=== PATIENT | male | born 1955 | race Caucasian/White ===

== ENCOUNTER 2016-11-16 07:49 | Emergency (ER) | payer MEDICARE, MEDICAID ==
[~2016-11-16] VITALS: Ht 167.6 cm; Wt 75.0 kg
[~2016-11-16 07:49] MED LIST: ACLI400A2 INH; ALBU8.5H3 INH; ALBUTEROL INHALER; ALPR1TAB2 PO; AMLO5TAB2 PO; AMOX1TAB61 PO; ASPI325T4 PO; AZIT500T77 PO; BENZ1TAB61 PO; BUDE10.2 INH; CEFD300C37 PO; CLON0.5T PO; CYCL5TAB PO; FLUT1DIS3 INH; HYDR50TA13 PO; IPRA12.9 INH; LEVO750T26 PO; LISI-170 PO; LISI1TAB7 PO; METR500T PO; MIRT15TA4 PO; NICO1PAT4 TD; NICO1PAT5 TD; PRED50TA PO; PRED5TAB PO; TRAM-28 PO; ZIPR40CA2 PO
[2016-11-16 12:25] VITALS: BP 117/70
== END 2016-11-16 12:27 | disposition home or self-care (01) ==
LOC: ED 12:21
DX: F41.1 Generalized anxiety disorder (principal); J44.1 Chronic obstructive pulmonary disease with (acute) exacerbation; Z59.0 Homelessness; E78.00 Pure hypercholesterolemia, unspecified
CPT/HCPCS: 99284

== ENCOUNTER 2016-11-16 16:46 | Emergency (ER) | payer MEDICARE, MEDICAID ==
[~2016-11-16] VITALS: Ht 167.6 cm; Wt 77.2 kg
[2016-11-16 18:14] LABS: BLOOD UREA NITROGEN 26 mg/dL (7-18)
[2016-11-16 18:20] LABS: IS PT STATUS REG ER OR PRE ER? YES
[2016-11-16 19:11] VITALS: BP 118/76
== END 2016-11-16 19:30 | disposition home or self-care (01) ==
LOC: ED 17:44
DX: F41.1 Generalized anxiety disorder (principal); I10 Essential (primary) hypertension; E78.00 Pure hypercholesterolemia, unspecified; F31.9 Bipolar disorder, unspecified
CPT/HCPCS: 36415; 71010; 80048; 84484; 85025; 93005; 99285; Q0177

== ENCOUNTER 2016-11-17 08:23 | Emergency (ER) | payer MEDICARE, MEDICAID ==
[~2016-11-17] VITALS: Ht 167.6 cm; Wt 76.0 kg
[2016-11-17 09:50] VITALS: BP 146/95
== END 2016-11-17 09:51 | disposition home or self-care (01) ==
LOC: ED 08:24
DX: S83.92XA Sprain of unspecified site of left knee, initial encounter (principal); S70.02XA Contusion of left hip, initial encounter; J44.9 Chronic obstructive pulmonary disease, unspecified; K21.9 Gastro-esophageal reflux disease without esophagitis; E78.00 Pure hypercholesterolemia, unspecified; Z86.718 Personal history of other venous thrombosis and embolism; Z88.1 Allergy status to other antibiotic agents; W18.30XA Fall on same level, unspecified, initial encounter; Y93.89 Activity, other specified; Y92.89 Other specified places as the place of occurrence of the external cause; Y99.9 Unspecified external cause status; F10.20 Alcohol dependence, uncomplicated
CPT/HCPCS: 99284

== ENCOUNTER 2017-01-05 00:38 | Emergency (ER) | payer MEDICARE, MEDICAID ==
[~2017-01-05] VITALS: Ht 167.6 cm; Wt 76.5 kg
[2017-01-05 00:51] VITALS: BP 149/90
== END 2017-01-05 02:07 | disposition home or self-care (01) ==
LOC: ED 01:50
DX: L03.317 Cellulitis of buttock (principal); L20.9 Atopic dermatitis, unspecified; L50.8 Other urticaria; I11.9 Hypertensive heart disease without heart failure; J44.9 Chronic obstructive pulmonary disease, unspecified; K21.9 Gastro-esophageal reflux disease without esophagitis; E78.00 Pure hypercholesterolemia, unspecified; F10.20 Alcohol dependence, uncomplicated; F17.200 Nicotine dependence, unspecified, uncomplicated
CPT/HCPCS: 99283

== ENCOUNTER 2017-01-13 22:47 | Emergency (ER) | payer MEDICARE, MEDICAID ==
[~2017-01-13] VITALS: Ht 172.7 cm; Wt 69.0 kg
[2017-01-13 22:50] VITALS: BP 160/90
== END 2017-01-13 23:27 | disposition left against medical advice (07) ==
LOC: ED 23:15
DX: L20.84 Intrinsic (allergic) eczema (principal); I25.2 Old myocardial infarction; J44.9 Chronic obstructive pulmonary disease, unspecified; I10 Essential (primary) hypertension; F31.9 Bipolar disorder, unspecified; Z86.718 Personal history of other venous thrombosis and embolism; Z88.1 Allergy status to other antibiotic agents
CPT/HCPCS: 99283

== ENCOUNTER 2017-03-01 03:02 | Emergency (ER) | payer MEDICARE, MEDICAID ==
[~2017-03-01] VITALS: Ht 167.6 cm; Wt 70.0 kg
[~2017-03-01 03:02] MED LIST changes: -ALBU8.5H3 INH; +ALBU8.5H8 INH; +ASPI325T17 PO; -ASPI325T4 PO; +AZIT500T5 PO; -AZIT500T77 PO; +NICO1PAT13 TD; +NICO1PAT16 TD; -NICO1PAT4 TD; -NICO1PAT5 TD; -TRAM-28 PO; +TRAM-47 PO
[2017-03-01 03:10] VITALS: BP 148/78
[2017-03-01] MEDS ORDERED: hydrOXYzine 50 MG/ML IM ONE (03:30)
== END 2017-03-01 03:29 | disposition home or self-care (01) ==
LOC: ED 03:26
DX: L20.84 Intrinsic (allergic) eczema (principal); J44.9 Chronic obstructive pulmonary disease, unspecified; E78.00 Pure hypercholesterolemia, unspecified; Z86.718 Personal history of other venous thrombosis and embolism; Z88.1 Allergy status to other antibiotic agents
CPT/HCPCS: 96372; 99283; J3410

== ENCOUNTER 2017-05-11 05:50 | Emergency (ER) | payer MEDICARE, MEDICAID ==
[~2017-05-11] VITALS: Ht 167.6 cm; Wt 80.0 kg
[~2017-05-11 05:50] MED LIST changes: +NICO-486 TD; +NICO-487 TD; -NICO1PAT13 TD; -NICO1PAT16 TD
[2017-05-11 05:57] VITALS: BP 151/61
== END 2017-05-11 06:42 | disposition home or self-care (01) ==
LOC: ED 06:06
DX: J44.1 Chronic obstructive pulmonary disease with (acute) exacerbation (principal); Z72.89 Other problems related to lifestyle; F10.20 Alcohol dependence, uncomplicated; K21.9 Gastro-esophageal reflux disease without esophagitis; E78.00 Pure hypercholesterolemia, unspecified; I11.9 Hypertensive heart disease without heart failure; Z87.891 Personal history of nicotine dependence
CPT/HCPCS: 93005; 99283

== ENCOUNTER 2017-07-19 02:21 | Emergency (ER) | payer MEDICARE, MEDICAID ==
[~2017-07-19] VITALS: Ht 167.6 cm; Wt 70.5 kg
[2017-07-19] MEDS ORDERED: BENZ2TAB6 PO (02:38)
[2017-07-19] MEDS ORDERED: ALBUTEROL/IPRATROPIUM 2.5MG/0.5MG, 3 ML NPPB ONE (03:00)
[2017-07-19] MEDS ORDERED: ALBUTEROL/IPRATROPIUM 2.5MG/0.5MG, 3 ML ONE (03:04)
[2017-07-19 03:17] LABS: BASOPHILS # (AUTO) 0.02 x10^3/uL (0-0.1); BASOPHILS % (AUTO) 0 % (0-1); EOSINOPHILS # (AUTO) 0.25 x10^3/uL (0-0.4); EOSINOPHILS % (AUTO) 4 % (1-7); LYMPHOCYTES # (AUTO) 1.17 x10^3/uL (1-3.4); LYMPHOCYTES % (AUTO) 19 % (22-44); MD NO; MEAN CORPUSCULAR HEMOGLOBIN 28.6 pg (27.5-34.5); MEAN CORPUSCULAR HGB CONC 33.5 g/dL (33.2-36.2); MEAN CORPUSCULAR VOLUME 85.4 fL (81-97); MONOCYTES % (AUTO) 10 % (2-9); NEUTROPHILS # (AUTO) 4.09 x10^3/uL (1.8-6.8); NEUTROPHILS % (AUTO) 67 % (42-75); PLATELET COUNT 244 x10^3/uL (130-400); RED BLOOD COUNT 4.35 x10^6/uL (4.38-5.82)
[2017-07-19 03:30] LABS: ALANINE AMINOTRANSFERASE 33 U/L (12-78); ALBUMIN 3.2 g/dL (3.4-5.0); ANION GAP 6 mmol/L (5-15); CALCIUM 7.8 mg/dL (8.5-10.1); CHLORIDE 111 mmol/L (98-107); CREATININE 1.04 mg/dL (0.7-1.3)
[2017-07-19 03:32] LABS: ALKALINE PHOSPHATASE 48 U/L (45-117); BILIRUBIN,TOTAL 0.3 mg/dL (0.2-1.0)
[2017-07-19 04:21] VITALS: BP 149/88
== END 2017-07-19 04:23 | disposition home or self-care (01) ==
LOC: ED 02:33
DX: J44.1 Chronic obstructive pulmonary disease with (acute) exacerbation (principal); I21.9 Acute myocardial infarction, unspecified; E78.00 Pure hypercholesterolemia, unspecified; I10 Essential (primary) hypertension; K21.9 Gastro-esophageal reflux disease without esophagitis
CPT/HCPCS: 36415; 71045; 80053; 85025; 94640; 99285; J7512; J7620

== ENCOUNTER 2017-09-08 06:19 | Emergency (ER) | payer MEDICARE, MEDICAID ==
[~2017-09-08] VITALS: Ht 172.7 cm; Wt 65.0 kg
[~2017-09-08 06:19] MED LIST changes: +BENZ2TAB6 PO
[2017-09-08] MEDS ORDERED: FAMOTIDINE 20 MG/2 ML IVP ONE (07:00)
[2017-09-08] MEDS ORDERED: SODIUM CHLORIDE FLUSH 10ML SYR IVF ONE (07:00)
[2017-09-08] MEDS ORDERED: MORPHINE SULFATE 4 MG/ML, 1ML IVPush PRN (07:00)
[2017-09-08] MEDS ORDERED: ONDANSETRON ODT 4 MG PO ONE (07:00)
[2017-09-08] MEDS ORDERED: ALBUTEROL/IPRATROPIUM 2.5MG/0.5MG, 3 ML ONE (07:25)
[2017-09-08] MEDS ORDERED: ONDANSETRON ODT 4 MG ONE (07:26)
[2017-09-08] MEDS ORDERED: FAMOTIDINE 20 MG/2 ML ONE (07:26)
[2017-09-08] MEDS ORDERED: ALBUTEROL/IPRATROPIUM 2.5MG/0.5MG, 3 ML NPPB ONE (07:30)
[2017-09-08] MEDS ORDERED: ALBU8.5H8 IH (07:33)
[2017-09-08] MEDS ORDERED: ALPR1TAB2 PO (07:33)
[2017-09-08] MEDS ORDERED: GABA300C10 PO (07:33)
[2017-09-08 07:39] LABS: BASOPHILS # (AUTO) 0.05 x10^3/uL (0-0.1); BASOPHILS % (AUTO) 1 % (0-1); EOSINOPHILS % (AUTO) 5 % (1-7); LYMPHOCYTES # (AUTO) 1.41 x10^3/uL (1-3.4); LYMPHOCYTES % (AUTO) 17 % (22-44); MD NO; MEAN CORPUSCULAR HEMOGLOBIN 27.2 pg (27.5-34.5); MEAN CORPUSCULAR HGB CONC 32.8 g/dL (33.2-36.2); MEAN CORPUSCULAR VOLUME 82.8 fL (81-97); MEAN PLATELET VOLUME 6.9 fL (7.4-10.4); MONOCYTES # (AUTO) 0.63 x10^3/uL (0.2-0.8); MONOCYTES % (AUTO) 8 % (2-9); NEUTROPHILS # (AUTO) 5.62 x10^3/uL (1.8-6.8); NEUTROPHILS % (AUTO) 69 % (42-75); PLATELET COUNT 435 x10^3/uL (130-400); RED BLOOD COUNT 4.75 x10^6/uL (4.38-5.82); RED CELL DISTRIBUTION WIDTH 15.6 % (9.4-14.8)
[2017-09-08 07:48] LABS: ALANINE AMINOTRANSFERASE 23 U/L (12-78); ALBUMIN 2.8 g/dL (3.4-5.0); ANION GAP 7 mmol/L (5-15); CALCIUM 8.2 mg/dL (8.5-10.1); CHLORIDE 111 mmol/L (98-107); CREATININE 1.01 mg/dL (0.7-1.3)
[2017-09-08 07:51] LABS: ALKALINE PHOSPHATASE 59 U/L (45-117); BILIRUBIN,TOTAL 0.4 mg/dL (0.2-1.0); TOTAL PROTEIN 6.5 g/dL (6.4-8.2)
[2017-09-08 08:08] LABS: MICROSCOPIC NOT IND
[2017-09-08 08:12] LABS: CULTURE INDICATED? NO
[2017-09-08] MEDS ORDERED: CEFTRIAXONE 1,000 MG in SODIUM CHLORIDE 0.9% 50 ML IV ONE (09:30)
[2017-09-08] MEDS ORDERED: CEFTRIAXONE PMX 1GM/50ML 50 ML IV ONE (09:39)
[2017-09-08] MEDS ORDERED: CEFTRIAXONE PMX 1GM/50ML 50 ML ONE (09:41)
[2017-09-08] MEDS ORDERED: MORPHINE SULFATE 4 MG/ML, 1ML ONE (09:59)
[2017-09-08 10:19] VITALS: BP 135/74
== END 2017-09-08 10:22 | disposition home or self-care (01) ==
LOC: ED 08:53
DX: R10.30 Lower abdominal pain, unspecified (principal); J15.8 Pneumonia due to other specified bacteria; J45.901 Unspecified asthma with (acute) exacerbation; L24.9 Irritant contact dermatitis, unspecified cause; Z87.01 Personal history of pneumonia (recurrent); Z79.899 Other long term (current) drug therapy
CPT/HCPCS: 36415; 71046; 76700; 80053; 80307; 81003; 83690; 85025; 96365; 96375; 99285; J0696; Q0162; J7620; S0028

== ENCOUNTER 2017-09-25 18:57 | Emergency (ER) | payer MEDICARE, MEDICAID ==
[~2017-09-25] VITALS: Ht 167.6 cm; Wt 73.5 kg
[~2017-09-25 18:57] MED LIST changes: +ALBU8.5H8 IH; +GABA300C10 PO
[2017-09-25 19:06] VITALS: BP 177/97
[2017-09-25 19:36] LABS: BASOPHILS # (AUTO) 0.03 x10^3/uL (0-0.1); BASOPHILS % (AUTO) 0 % (0-1); EOSINOPHILS % (AUTO) 7 % (1-7); LYMPHOCYTES # (AUTO) 1.15 x10^3/uL (1-3.4); LYMPHOCYTES % (AUTO) 15 % (22-44); MD NO; MEAN CORPUSCULAR HEMOGLOBIN 27.4 pg (27.5-34.5); MEAN CORPUSCULAR HGB CONC 32.8 g/dL (33.2-36.2); MEAN CORPUSCULAR VOLUME 83.4 fL (81-97); MEAN PLATELET VOLUME 7.3 fL (7.4-10.4); MONOCYTES # (AUTO) 0.64 x10^3/uL (0.2-0.8); MONOCYTES % (AUTO) 8 % (2-9); NEUTROPHILS # (AUTO) 5.24 x10^3/uL (1.8-6.8); NEUTROPHILS % (AUTO) 69 % (42-75); PLATELET COUNT 284 x10^3/uL (130-400); RED BLOOD COUNT 4.72 x10^6/uL (4.38-5.82); RED CELL DISTRIBUTION WIDTH 15.5 % (9.4-14.8)
[2017-09-25 19:44] LABS: ALBUMIN 3.6 g/dL (3.4-5.0); ANION GAP 8 mmol/L (5-15); CALCIUM 8.4 mg/dL (8.5-10.1); CHLORIDE 116 mmol/L (98-107); CREATININE 0.96 mg/dL (0.7-1.3)
[2017-09-25] MEDS ORDERED: hydrOXyzine 50MG TABLET ONE (19:57)
== END 2017-09-25 20:27 | disposition home or self-care (01) ==
LOC: ED 20:15
DX: L23.89 Allergic contact dermatitis due to other agents (principal); T36.8X5A Adverse effect of other systemic antibiotics, initial encounter; Y92.89 Other specified places as the place of occurrence of the external cause; I10 Essential (primary) hypertension; J44.9 Chronic obstructive pulmonary disease, unspecified; E78.00 Pure hypercholesterolemia, unspecified; F31.9 Bipolar disorder, unspecified; K21.9 Gastro-esophageal reflux disease without esophagitis
CPT/HCPCS: 36415; 80048; 82040; 85025; 99284; Q0177

== ENCOUNTER 2017-10-03 05:41 | Emergency (ER) | payer MEDICARE, MEDICAID ==
[~2017-10-03] VITALS: Ht 167.6 cm; Wt 74.1 kg
[2017-10-03] MEDS ORDERED: MORPHINE SULFATE 4 MG/ML, 1ML ONE (05:59)
[2017-10-03] MEDS ORDERED: ONDANSETRON ODT 4 MG ONE (05:59)
[2017-10-03] MEDS ORDERED: ONDANSETRON ODT 4 MG PO ONE (06:00)
[2017-10-03] MEDS ORDERED: MORPHINE SULFATE 4 MG/ML, 1ML IVPush PRN (06:00)
[2017-10-03] MEDS ORDERED: SODIUM CHLORIDE FLUSH 10ML SYR IVF ONE (06:00)
[2017-10-03 06:11] LABS: BASOPHILS # (AUTO) 0.07 x10^3/uL (0-0.1); BASOPHILS % (AUTO) 1 % (0-1); EOSINOPHILS # (AUTO) 0.33 x10^3/uL (0-0.4); EOSINOPHILS % (AUTO) 5 % (1-7); LYMPHOCYTES # (AUTO) 1.64 x10^3/uL (1-3.4); LYMPHOCYTES % (AUTO) 26 % (22-44); MD NO; MEAN CORPUSCULAR HEMOGLOBIN 26.9 pg (27.5-34.5); MEAN CORPUSCULAR HGB CONC 32.9 g/dL (33.2-36.2); MEAN CORPUSCULAR VOLUME 81.9 fL (81-97); MEAN PLATELET VOLUME 7.3 fL (7.4-10.4); MONOCYTES # (AUTO) 0.55 x10^3/uL (0.2-0.8); MONOCYTES % (AUTO) 9 % (2-9); NEUTROPHILS # (AUTO) 3.65 x10^3/uL (1.8-6.8); NEUTROPHILS % (AUTO) 58 % (42-75); PLATELET COUNT 298 x10^3/uL (130-400); RED BLOOD COUNT 5.48 x10^6/uL (4.38-5.82); RED CELL DISTRIBUTION WIDTH 15.5 % (9.4-14.8)
[2017-10-03 06:23] LABS: ALANINE AMINOTRANSFERASE 26 U/L (12-78); ALBUMIN 3.7 g/dL (3.4-5.0); ANION GAP 9 mmol/L (5-15); CALCIUM 8.4 mg/dL (8.5-10.1); CHLORIDE 112 mmol/L (98-107); CREATININE 1.01 mg/dL (0.7-1.3)
[2017-10-03 06:25] LABS: ALKALINE PHOSPHATASE 70 U/L (45-117); BILIRUBIN,TOTAL 0.7 mg/dL (0.2-1.0); TOTAL PROTEIN 6.9 g/dL (6.4-8.2)
[2017-10-03] MEDS ORDERED: DIPHENHYDRAMINE 50 MG/ML, 1ML ONE (07:24)
[2017-10-03] MEDS ORDERED: DIPHENHYDRAMINE 50 MG/ML, 1ML IVPush ONE (07:30)
[2017-10-03 07:31] VITALS: BP 166/85
== END 2017-10-03 07:55 | disposition home or self-care (01) ==
LOC: ED 07:35
DX: K40.90 Unilateral inguinal hernia, without obstruction or gangrene, not specified as recurrent (principal); K21.9 Gastro-esophageal reflux disease without esophagitis; J44.9 Chronic obstructive pulmonary disease, unspecified; G89.29 Other chronic pain; R10.32 Left lower quadrant pain; Z86.718 Personal history of other venous thrombosis and embolism
CPT/HCPCS: 36415; 80053; 83605; 83690; 85025; 87040; 96374; 96375; 99284; J1200; Q0162; 96372

== ENCOUNTER 2017-10-05 07:05 | Emergency (ER) | payer MEDICARE, MEDICAID ==
[~2017-10-05] VITALS: Ht 167.6 cm; Wt 74.0 kg
[2017-10-05 07:15] VITALS: BP 159/84
[2017-10-05] MEDS ORDERED: HYDROcodone/APAP 5/325 TABLET ONE (07:29)
[2017-10-05] MEDS ORDERED: HYDROcodone/APAP 5/325 TABLET PO ONE (07:30)
[2017-10-05 07:55] LABS: BASOPHILS # (AUTO) 0.05 x10^3/uL (0-0.1); BASOPHILS % (AUTO) 1 % (0-1); EOSINOPHILS # (AUTO) 0.39 x10^3/uL (0-0.4); EOSINOPHILS % (AUTO) 9 % (1-7); LYMPHOCYTES # (AUTO) 0.69 x10^3/uL (1-3.4); LYMPHOCYTES % (AUTO) 16 % (22-44); MD NO; MEAN CORPUSCULAR HEMOGLOBIN 26.8 pg (27.5-34.5); MEAN CORPUSCULAR HGB CONC 32.9 g/dL (33.2-36.2); MEAN CORPUSCULAR VOLUME 81.6 fL (81-97); MEAN PLATELET VOLUME 7.2 fL (7.4-10.4); MONOCYTES # (AUTO) 0.49 x10^3/uL (0.2-0.8); MONOCYTES % (AUTO) 11 % (2-9); NEUTROPHILS # (AUTO) 2.76 x10^3/uL (1.8-6.8); NEUTROPHILS % (AUTO) 63 % (42-75); PLATELET COUNT 250 x10^3/uL (130-400); RED BLOOD COUNT 4.95 x10^6/uL (4.38-5.82); RED CELL DISTRIBUTION WIDTH 15.8 % (9.4-14.8)
[2017-10-05 08:00] LABS: ALBUMIN 3.3 g/dL (3.4-5.0); ANION GAP 8 mmol/L (5-15); CALCIUM 7.8 mg/dL (8.5-10.1); CHLORIDE 116 mmol/L (98-107); CREATININE 1.01 mg/dL (0.7-1.3)
== END 2017-10-05 09:17 | disposition home or self-care (01) ==
LOC: ED 07:07
DX: K40.90 Unilateral inguinal hernia, without obstruction or gangrene, not specified as recurrent (principal); L30.9 Dermatitis, unspecified; Z59.0 Homelessness; J44.9 Chronic obstructive pulmonary disease, unspecified; E78.00 Pure hypercholesterolemia, unspecified; K21.9 Gastro-esophageal reflux disease without esophagitis; I10 Essential (primary) hypertension; F10.20 Alcohol dependence, uncomplicated; F17.210 Nicotine dependence, cigarettes, uncomplicated
CPT/HCPCS: 36415; 80048; 82040; 83605; 85025; 99284

== ENCOUNTER 2017-10-05 09:39 | Emergency (ER) | payer MEDICARE, MEDICAID ==
[~2017-10-05] VITALS: Ht 167.6 cm; Wt 78.0 kg
[2017-10-05 09:42] VITALS: BP 167/91
== END 2017-10-05 12:00 | disposition left against medical advice (07) ==
LOC: ED 11:24
DX: K40.90 Unilateral inguinal hernia, without obstruction or gangrene, not specified as recurrent (principal); J44.9 Chronic obstructive pulmonary disease, unspecified; E78.00 Pure hypercholesterolemia, unspecified; I11.9 Hypertensive heart disease without heart failure; K21.9 Gastro-esophageal reflux disease without esophagitis; Z86.718 Personal history of other venous thrombosis and embolism; F10.20 Alcohol dependence, uncomplicated
CPT/HCPCS: 99281

== ENCOUNTER 2017-10-13 14:50 | Emergency (ER) | payer MEDICARE, MEDICAID ==
[~2017-10-13] VITALS: Ht 167.6 cm; Wt 71.4 kg
[2017-10-13 14:57] VITALS: BP 170/88
== END 2017-10-13 16:03 | disposition home or self-care (01) ==
LOC: ED 15:44
DX: K40.91 Unilateral inguinal hernia, without obstruction or gangrene, recurrent (principal); I10 Essential (primary) hypertension; E78.00 Pure hypercholesterolemia, unspecified; I25.2 Old myocardial infarction; K21.9 Gastro-esophageal reflux disease without esophagitis; J44.9 Chronic obstructive pulmonary disease, unspecified; F17.200 Nicotine dependence, unspecified, uncomplicated
CPT/HCPCS: 99283

== ENCOUNTER 2017-12-10 11:07 | Emergency (ER) | payer MEDICARE, MEDICAID ==
[~2017-12-10] VITALS: Ht 167.6 cm; Wt 69.5 kg
[2017-12-10 11:42] LABS: BASOPHILS # (AUTO) 0.11 x10^3/uL (0-0.1); BASOPHILS % (AUTO) 2 % (0-1); EOSINOPHILS # (AUTO) 0.38 x10^3/uL (0-0.4); EOSINOPHILS % (AUTO) 7 % (1-7); LYMPHOCYTES # (AUTO) 0.99 x10^3/uL (1-3.4); LYMPHOCYTES % (AUTO) 18 % (22-44); MD NO; MEAN CORPUSCULAR HEMOGLOBIN 26.2 pg (27.5-34.5); MEAN CORPUSCULAR HGB CONC 32.9 g/dL (33.2-36.2); MEAN CORPUSCULAR VOLUME 79.6 fL (81-97); MEAN PLATELET VOLUME 7.7 fL (7.4-10.4); MONOCYTES # (AUTO) 0.44 x10^3/uL (0.2-0.8); MONOCYTES % (AUTO) 8 % (2-9); NEUTROPHILS # (AUTO) 3.63 x10^3/uL (1.8-6.8); NEUTROPHILS % (AUTO) 66 % (42-75); PLATELET COUNT 273 x10^3/uL (130-400); RED BLOOD COUNT 5.27 x10^6/uL (4.38-5.82); RED CELL DISTRIBUTION WIDTH 14.4 % (9.4-14.8)
[2017-12-10 11:51] LABS: ALANINE AMINOTRANSFERASE 21 U/L (12-78); ALBUMIN 3.4 g/dL (3.4-5.0); ANION GAP 7 mmol/L (5-15); CALCIUM 8.2 mg/dL (8.5-10.1); CHLORIDE 113 mmol/L (98-107)
[2017-12-10 11:55] LABS: ALKALINE PHOSPHATASE 68 U/L (45-117); BILIRUBIN,TOTAL 0.2 mg/dL (0.2-1.0); CREATININE 1.11 mg/dL (0.7-1.3); TOTAL PROTEIN 6.5 g/dL (6.4-8.2); TROPONIN I < 0.015 ng/mL (0.000-0.045)
[2017-12-10 13:02] VITALS: BP 185/96
== END 2017-12-10 15:15 | disposition home or self-care (01) ==
LOC: ED 14:44
DX: R55 Syncope and collapse (principal); R42 Dizziness and giddiness; R40.4 Transient alteration of awareness; I10 Essential (primary) hypertension; J44.9 Chronic obstructive pulmonary disease, unspecified; I25.2 Old myocardial infarction; E78.00 Pure hypercholesterolemia, unspecified; F17.200 Nicotine dependence, unspecified, uncomplicated; Z86.718 Personal history of other venous thrombosis and embolism
CPT/HCPCS: 36415; 70450; 71045; 72125; 72190; 80053; 80307; 84484; 85025; 93005; 99285

== ENCOUNTER 2018-01-23 22:51 | Emergency (ER) | payer MEDICARE, MEDICAID ==
[~2018-01-23] VITALS: Ht 167.6 cm; Wt 70.0 kg
[2018-01-23] MEDS ORDERED: LISI2.5T PO (23:13)
[2018-01-23 23:18] LABS: BASOPHILS # (AUTO) 0.04 x10^3/uL (0-0.1); BASOPHILS % (AUTO) 0 % (0-1); EOSINOPHILS # (AUTO) 0.22 x10^3/uL (0-0.4); EOSINOPHILS % (AUTO) 3 % (1-7); LYMPHOCYTES # (AUTO) 1.76 x10^3/uL (1-3.4); LYMPHOCYTES % (AUTO) 21 % (22-44); MD NO; MEAN CORPUSCULAR HEMOGLOBIN 26.7 pg (27.5-34.5); MEAN CORPUSCULAR HGB CONC 33.3 g/dL (33.2-36.2); MEAN CORPUSCULAR VOLUME 80.2 fL (81-97); MEAN PLATELET VOLUME 7.6 fL (7.4-10.4); MONOCYTES # (AUTO) 0.56 x10^3/uL (0.2-0.8); MONOCYTES % (AUTO) 7 % (2-9); NEUTROPHILS # (AUTO) 5.76 x10^3/uL (1.8-6.8); NEUTROPHILS % (AUTO) 69 % (42-75); PLATELET COUNT 256 x10^3/uL (130-400); RED BLOOD COUNT 5.31 x10^6/uL (4.38-5.82); RED CELL DISTRIBUTION WIDTH 16.7 % (9.4-14.8)
[2018-01-23] MEDS: LABETALOL 5MG/ML, 20ML IVPush ONE (23:25)
[2018-01-23 23:29] LABS: ALANINE AMINOTRANSFERASE 23 U/L (12-78); ALBUMIN 3.4 g/dL (3.4-5.0); ANION GAP 4 mmol/L (5-15); CALCIUM 8.6 mg/dL (8.5-10.1); CHLORIDE 110 mmol/L (98-107)
[2018-01-23] MEDS ORDERED: SODIUM CHLORIDE 0.9% 1,000ML IVBOLUS ONE (23:30)
[2018-01-23 23:32] LABS: ALKALINE PHOSPHATASE 75 U/L (45-117); BILIRUBIN,TOTAL 0.2 mg/dL (0.2-1.0); CREATININE 1.05 mg/dL (0.7-1.3); TOTAL PROTEIN 6.4 g/dL (6.4-8.2)
[2018-01-23] MEDS ORDERED: LABETALOL 5MG/ML, 20ML ONE (23:39)
[2018-01-24] MEDS ORDERED: LABETALOL 5MG/ML, 20ML ONE (00:12)
[2018-01-24] MEDS: LABETALOL 5MG/ML, 20ML IVPush ONE (00:13)
[2018-01-24 00:31] LABS: AMPHETAMINE SCREEN, URINE Negative (Negative); BARBITURATE SCREEN, URINE Negative (Negative); BENZODIAZEPINE SCREEN, URINE Negative (Negative); CANNABINOID SCREEN, URINE Negative (Negative); COCAINE SCREEN, URINE Negative (Negative); METHADONE SCREEN, URINE Negative (Negative); OPIATE SCREEN, URINE Negative (Negative)
[2018-01-24 01:30] VITALS: BP 186/92
[2018-01-24] MEDS ORDERED: LISINOPRIL 5 MG TABLET PO ONE (01:30)
== END 2018-01-24 01:40 | disposition home or self-care (01) ==
LOC: ED 01-24 00:13
DX: I10 Essential (primary) hypertension (principal); Z72.9 Problem related to lifestyle, unspecified; F17.200 Nicotine dependence, unspecified, uncomplicated; F41.1 Generalized anxiety disorder; Z86.73 Personal history of transient ischemic attack (TIA), and cerebral infarction without residual deficits; J44.9 Chronic obstructive pulmonary disease, unspecified; K21.9 Gastro-esophageal reflux disease without esophagitis; I25.2 Old myocardial infarction; F31.9 Bipolar disorder, unspecified
CPT/HCPCS: 36415; 70450; 80053; 80307; 85025; 96374; 99285; J7030

== ENCOUNTER 2018-02-07 00:31 | Emergency (ER) | payer MEDICARE, MEDICAID ==
[~2018-02-07] VITALS: Ht 167.6 cm; Wt 71.2 kg
[~2018-02-07 00:31] MED LIST changes: +LISI2.5T PO
[2018-02-07 02:02] LABS: BASOPHILS # (AUTO) 0.03 x10^3/uL (0-0.1); BASOPHILS % (AUTO) 1 % (0-1); EOSINOPHILS # (AUTO) 0.44 x10^3/uL (0-0.4); EOSINOPHILS % (AUTO) 8 % (1-7); LYMPHOCYTES # (AUTO) 0.96 x10^3/uL (1-3.4); LYMPHOCYTES % (AUTO) 17 % (22-44); MD NO; MEAN CORPUSCULAR HEMOGLOBIN 27.2 pg (27.5-34.5); MEAN CORPUSCULAR HGB CONC 33.5 g/dL (33.2-36.2); MEAN CORPUSCULAR VOLUME 81.1 fL (81-97); MEAN PLATELET VOLUME 7.4 fL (7.4-10.4); MONOCYTES # (AUTO) 0.34 x10^3/uL (0.2-0.8); MONOCYTES % (AUTO) 6 % (2-9); NEUTROPHILS # (AUTO) 3.77 x10^3/uL (1.8-6.8); NEUTROPHILS % (AUTO) 68 % (42-75); PLATELET COUNT 257 x10^3/uL (130-400); RED BLOOD COUNT 5.42 x10^6/uL (4.38-5.82); RED CELL DISTRIBUTION WIDTH 16.9 % (9.4-14.8)
[2018-02-07 02:11] LABS: ALANINE AMINOTRANSFERASE 28 U/L (12-78); ALBUMIN 3.6 g/dL (3.4-5.0); ANION GAP 5 mmol/L (5-15); CALCIUM 8.3 mg/dL (8.5-10.1); CHLORIDE 111 mmol/L (98-107); CREATININE 1.21 mg/dL (0.7-1.3)
[2018-02-07 02:13] LABS: ALKALINE PHOSPHATASE 88 U/L (45-117); BILIRUBIN,TOTAL 0.3 mg/dL (0.2-1.0); TOTAL PROTEIN 6.9 g/dL (6.4-8.2)
[2018-02-07 03:30] LABS: MICROSCOPIC AUTO
[2018-02-07 03:32] LABS: CULTURE INDICATED? NO
[2018-02-07 03:33] VITALS: BP 162/66
== END 2018-02-07 03:35 | disposition home or self-care (01) ==
LOC: ED 01:17
DX: G89.29 Other chronic pain (principal); R10.84 Generalized abdominal pain; I10 Essential (primary) hypertension; J44.9 Chronic obstructive pulmonary disease, unspecified; K21.9 Gastro-esophageal reflux disease without esophagitis; I25.2 Old myocardial infarction; E78.00 Pure hypercholesterolemia, unspecified; F31.9 Bipolar disorder, unspecified; F41.1 Generalized anxiety disorder; M10.9 Gout, unspecified; F17.210 Nicotine dependence, cigarettes, uncomplicated; Z86.718 Personal history of other venous thrombosis and embolism
CPT/HCPCS: 36415; 74022; 80053; 81001; 83690; 85025; 99285

== ENCOUNTER 2018-04-13 02:33 | Emergency (ER) | payer MEDICARE, MEDICAID ==
[~2018-04-13] VITALS: Ht 167.6 cm; Wt 71.7 kg
[~2018-04-13 02:33] MED LIST changes: -AMLO5TAB2 PO; +AMLO5TAB7 PO
[2018-04-13 02:35] VITALS: BP 183/73
[2018-04-13] MEDS ORDERED: IBUPROFEN 200 MG TABLET ONE (03:25)
[2018-04-13] MEDS ORDERED: IBUPROFEN 200 MG TABLET PO ONE (03:30)
== END 2018-04-13 03:32 | disposition home or self-care (01) ==
LOC: ED 03:07
DX: R21 Rash and other nonspecific skin eruption (principal); F17.210 Nicotine dependence, cigarettes, uncomplicated; I10 Essential (primary) hypertension; J44.9 Chronic obstructive pulmonary disease, unspecified; K21.9 Gastro-esophageal reflux disease without esophagitis; I25.2 Old myocardial infarction; E78.00 Pure hypercholesterolemia, unspecified
CPT/HCPCS: 99283

== ENCOUNTER 2018-07-20 18:56 | Emergency (ER) | payer MEDICARE, MEDICAID ==
[~2018-07-20] VITALS: Ht 167.6 cm; Wt 72.7 kg
[~2018-07-20 18:56] MED LIST changes: +AMLO-150 PO; -AMLO5TAB7 PO
[2018-07-20 19:02] VITALS: BP 119/85
[2018-07-20] MEDS ORDERED: ACETAMINOPHEN 500 MG TABLET ONE (19:53)
[2018-07-20] MEDS ORDERED: IBUPROFEN 600 MG TABLET ONE (19:53)
[2018-07-20] MEDS ORDERED: IBUPROFEN 600 MG TABLET PO ONE (20:00)
[2018-07-20] MEDS ORDERED: ACETAMINOPHEN 500 MG TABLET PO ONE (20:00)
--- NOTE | 2018-07-20 20:13 | NUR ---
PT MEDICATED PER ERP ORDER FOR CHRONIC PAIN. CXR RESULTS BACK, PT FOR RECHECK.
== END 2018-07-20 20:51 | disposition home or self-care (01) ==
LOC: ED 19:23
DX: L03.115 Cellulitis of right lower limb (principal); R05 Cough; E78.00 Pure hypercholesterolemia, unspecified; I25.2 Old myocardial infarction; J44.9 Chronic obstructive pulmonary disease, unspecified; I10 Essential (primary) hypertension; F31.9 Bipolar disorder, unspecified; Z72.9 Problem related to lifestyle, unspecified; Z86.718 Personal history of other venous thrombosis and embolism
CPT/HCPCS: 71045; 93005; 99283

== ENCOUNTER 2019-05-20 21:19 | Emergency (ER) | payer MEDICARE, MEDICAID ==
[~2019-05-20] VITALS: Ht 167.6 cm; Wt 67.0 kg
[~2019-05-20 21:19] MED LIST changes: -ACLI400A2 INH; +ACLI400A3 INH; +AZIT500T10 PO; -AZIT500T5 PO; +LISI1TAB20 PO; -LISI1TAB7 PO; +MIRT-34 PO; -MIRT15TA4 PO
--- NOTE | 2019-05-20 21:33 | NUR ---
PT [facility]YNA FROM [facility] FOR SOB WITH OBVIOUS INSPIRATORY AND EXPIRATORY WHEEZES X "A WHILE, SINCE THE WEATHER CHANGED." PT CONNECTED TO MONITORS. VSS ON RA. NEBULIZER TREATMENT IN PROGRESS UPON ARRIVAL. RA O2 SAT >94% AFTER NEB TX. NO NEEDS EXPRESSED. CALL LIGHT WITHIN REACH. AWAITING EDMD ASSESSMENT.
[2019-05-20] MEDS ORDERED: ALBUTEROL/IPRATROPIUM 2.5MG/0.5MG, 3 ML ONE (21:56)
[2019-05-20] MEDS ORDERED: ALBUTEROL/IPRATROPIUM 2.5MG/0.5MG, 3 ML NPPB ONE (22:00)
--- NOTE | 2019-05-20 22:02 | NUR ---
pt resting in room. vss. ekg and xr complete. rt at bs now. pt medicated per mar. no needs expressed. call light within reach. awaiting results.
[2019-05-20 23:30] VITALS: BP 118/54
== END 2019-05-20 23:34 | disposition home or self-care (01) ==
LOC: ED 23:28
DX: J98.01 Acute bronchospasm (principal); J06.9 Acute upper respiratory infection, unspecified; J44.9 Chronic obstructive pulmonary disease, unspecified; I10 Essential (primary) hypertension; K21.9 Gastro-esophageal reflux disease without esophagitis; E78.00 Pure hypercholesterolemia, unspecified; F17.200 Nicotine dependence, unspecified, uncomplicated
CPT/HCPCS: 71045; 93005; 94640; 99283; J7512; J7620

== ENCOUNTER 2019-06-15 01:12 | Emergency (ER) | payer MEDICAID, MEDICARE ==
[~2019-06-15] VITALS: Ht 167.6 cm; Wt 69.0 kg
[2019-06-15 01:24] VITALS: BP 190/93
[2019-06-15] MEDS ORDERED: ALBUTEROL/IPRATROPIUM 2.5MG/0.5MG, 3 ML NPPB ONE (01:30)
[2019-06-15] MEDS ORDERED: ALBUTEROL/IPRATROPIUM 2.5MG/0.5MG, 3 ML ONE (01:44)
[2019-06-15 01:47] LABS: BASOPHILS # (AUTO) 0.03 x10^3/uL (0-0.1); BASOPHILS % (AUTO) 0 % (0-1); EOSINOPHILS % (AUTO) 3 % (1-7); LYMPHOCYTES # (AUTO) 1.79 x10^3/uL (1-3.4); LYMPHOCYTES % (AUTO) 20 % (22-44); MD NO; MEAN CORPUSCULAR HEMOGLOBIN 29.5 pg (27.5-34.5); MEAN CORPUSCULAR HGB CONC 33.4 g/dL (33.2-36.2); MEAN CORPUSCULAR VOLUME 88.4 fL (81-97); MEAN PLATELET VOLUME 7.7 fL (7.4-10.4); MONOCYTES # (AUTO) 0.62 x10^3/uL (0.2-0.8); MONOCYTES % (AUTO) 7 % (2-9); NEUTROPHILS # (AUTO) 6.17 x10^3/uL (1.8-6.8); NEUTROPHILS % (AUTO) 69 % (42-75); PLATELET COUNT 211 x10^3/uL (130-400); RED BLOOD COUNT 4.81 x10^6/uL (4.38-5.82); RED CELL DISTRIBUTION WIDTH 14.4 % (9.4-14.8)
[2019-06-15 01:55] LABS: ALBUMIN 3.2 g/dL (3.4-5.0); ANION GAP 6 mmol/L (5-15); CALCIUM 7.8 mg/dL (8.5-10.1); CHLORIDE 113 mmol/L (98-107)
[2019-06-15 02:01] LABS: CREATININE 1.03 mg/dL (0.7-1.3); TROPONIN I < 0.015 ng/mL (0.000-0.045)
== END 2019-06-15 03:12 | disposition home or self-care (01) ==
LOC: ED 01:45
DX: J44.1 Chronic obstructive pulmonary disease with (acute) exacerbation (principal); I10 Essential (primary) hypertension; K21.9 Gastro-esophageal reflux disease without esophagitis; I25.2 Old myocardial infarction; M10.9 Gout, unspecified; F17.210 Nicotine dependence, cigarettes, uncomplicated; Z72.89 Other problems related to lifestyle; Z86.718 Personal history of other venous thrombosis and embolism
CPT/HCPCS: 36415; 71046; 80048; 82040; 83880; 84484; 85025; 93005; 94640; 99284; 99406; J7512; J7620

== ENCOUNTER 2019-06-23 21:14 | Inpatient (IN) | payer MEDICARE, MEDICAID ==
[~2019-06-23] VITALS: Ht 167.6 cm; Wt 80.1 kg
[2019-06-23] MEDS ORDERED: ASPIRIN 81 MG TABLET CHEW PO ONE (22:00)
[2019-06-23] MEDS ORDERED: ALBUTEROL/IPRATROPIUM 2.5MG/0.5MG, 3 ML NPPB SCH (22:00)
[2019-06-23] MEDS ORDERED: ASPIRIN 81 MG TABLET CHEW ONE (23:40)
[2019-06-23] MEDS ORDERED: ALBUTEROL/IPRATROPIUM 2.5MG/0.5MG, 3 ML ONE (23:42)
[2019-06-24] MEDS ORDERED: ALBUTEROL/IPRATROPIUM 2.5MG/0.5MG, 3 ML NPPB PRN
[2019-06-24 00:14] LABS: BASOPHILS # (AUTO) 0.06 x10^3/uL (0-0.1); BASOPHILS % (AUTO) 0 % (0-1); EOSINOPHILS # (AUTO) 0.08 x10^3/uL (0-0.4); EOSINOPHILS % (AUTO) 1 % (1-7); LYMPHOCYTES # (AUTO) 2.35 x10^3/uL (1-3.4); LYMPHOCYTES % (AUTO) 17 % (22-44); MD NO; MEAN CORPUSCULAR HEMOGLOBIN 29.2 pg (27.5-34.5); MEAN CORPUSCULAR HGB CONC 32.6 g/dL (33.2-36.2); MEAN CORPUSCULAR VOLUME 89.5 fL (81-97); MEAN PLATELET VOLUME 7.4 fL (7.4-10.4); MONOCYTES # (AUTO) 0.93 x10^3/uL (0.2-0.8); MONOCYTES % (AUTO) 7 % (2-9); NEUTROPHILS # (AUTO) 10.17 x10^3/uL (1.8-6.8); NEUTROPHILS % (AUTO) 75 % (42-75); PLATELET COUNT 236 x10^3/uL (130-400); RED BLOOD COUNT 5.15 x10^6/uL (4.38-5.82); RED CELL DISTRIBUTION WIDTH 14.2 % (9.4-14.8)
[2019-06-24 00:24] LABS: ALANINE AMINOTRANSFERASE 25 U/L (12-78); ALBUMIN 3.3 g/dL (3.4-5.0); ANION GAP 5 mmol/L (5-15); CALCIUM 8.7 mg/dL (8.5-10.1); CHLORIDE 113 mmol/L (98-107); CREATININE 1.29 mg/dL (0.7-1.3)
[2019-06-24 00:29] LABS: ALKALINE PHOSPHATASE 62 U/L (45-117); BILIRUBIN,TOTAL 0.2 mg/dL (0.2-1.0); TOTAL PROTEIN 6.1 g/dL (6.4-8.2); TROPONIN I < 0.015 ng/mL (0.000-0.045)
[2019-06-24] MEDS ORDERED: LEVOFLOXACIN/PMX 500MG/100ML 100 ML ONE (00:52)
[2019-06-24] MEDS ORDERED: LEVOFLOXACIN/PMX 500MG/100ML 100 ML IV ONE (01:00)
[2019-06-24] MEDS ORDERED: SODIUM CHLORIDE FLUSH 10ML SYR IVF ONE (01:00)
[2019-06-24 01:38] VITALS: BP 177/95
[2019-06-24] MEDS ORDERED: PROMETHAZINE 25 MG/ML, 1ML IM PRN (06:00)
[2019-06-24] MEDS ORDERED: ACETAMINOPHEN 325 MG TABLET PO PRN (06:00)
[2019-06-24] MEDS: methylPREDNISolone SOD SUCC 125 MG/2 ML IVPush SCH ×4 (06:20→23:23)
[2019-06-24] MEDS: ENOXAPARIN 40 MG/0.4 ML SQ SCH (06:20)
[2019-06-24 06:22] VITALS: BP 170/104
[2019-06-24] MEDS: hydrALAzine 20 MG/ML, 1ML IVPush PRN ×4 (06:28→20:21)
[2019-06-24 07:05] LABS: AMPHETAMINE SCREEN, URINE Negative (Negative); BARBITURATE SCREEN, URINE Negative (Negative); BENZODIAZEPINE SCREEN, URINE Negative (Negative); CANNABINOID SCREEN, URINE Negative (Negative); COCAINE SCREEN, URINE Negative (Negative); METHADONE SCREEN, URINE Negative (Negative); OPIATE SCREEN, URINE Negative (Negative)
[2019-06-24 07:32] VITALS: BP 152/86
[2019-06-24] MEDS ORDERED: ALBUTEROL/IPRATROPIUM 2.5MG/0.5MG, 3 ML NPPB SCH ×2 (08:00)
[2019-06-24] MEDS: GUAIFENESIN 200 MG TABLET PO SCH ×3 (11:22→20:21)
[2019-06-24 13:49] VITALS: BP_SYST 176; BP_SYST 177; BP_DIAS 94; BP_DIAS 99
[2019-06-24 16:13] VITALS: BP 157/81
[2019-06-24 19:20] VITALS: BP 170/81
[2019-06-24] MEDS ORDERED: BUDESONIDE 0.5 MG/2 ML INHA NPPB SCH (21:00)
[2019-06-24] MEDS: DIAZEPAM 5 MG TABLET PO PRN (21:31)
[2019-06-24] MEDS ORDERED: LISI40TA PO (22:39)
[2019-06-24] MEDS ORDERED: PRED50TA PO (22:39)
[2019-06-24] MEDS ORDERED: BENZ2TAB6 PO (22:39)
[2019-06-24] MEDS ORDERED: DIAZ2TAB3 PO (22:39)
[2019-06-24] MEDS ORDERED: OLAN5TAB5 PO (22:39)
[2019-06-24] MEDS ORDERED: HYDR50TA13 PO (22:39)
[2019-06-24] MEDS ORDERED: GABA300C10 PO (22:39)
[2019-06-24] MEDS ORDERED: hydrOXyzine 50MG TABLET PO PRN (23:00)
[2019-06-24] MEDS ORDERED: LISINOPRIL 40 MG TABLET ONE (23:10)
[2019-06-24] MEDS ORDERED: OLANZAPINE 5 MG TABLET ONE (23:10)
[2019-06-24] MEDS ORDERED: OLANZAPINE 5 MG TABLET PO ONE (23:30)
[2019-06-25 00:16] VITALS: BP 169/82
[2019-06-25 04:52] LABS: MEAN CORPUSCULAR HEMOGLOBIN 29.5 pg (27.5-34.5); MEAN CORPUSCULAR HGB CONC 33.3 g/dL (33.2-36.2); MEAN CORPUSCULAR VOLUME 88.8 fL (81-97); MEAN PLATELET VOLUME 7.8 fL (7.4-10.4); PLATELET COUNT 264 x10^3/uL (130-400); RED BLOOD COUNT 5.18 x10^6/uL (4.38-5.82); RED CELL DISTRIBUTION WIDTH 14.4 % (9.4-14.8)
[2019-06-25 05:02] LABS: ANION GAP 7 mmol/L (5-15); CALCIUM 8.2 mg/dL (8.5-10.1); CHLORIDE 110 mmol/L (98-107)
[2019-06-25 05:03] LABS: CREATININE 1.14 mg/dL (0.7-1.3)
[2019-06-25 05:34] LABS: MD YES
[2019-06-25 05:35] LABS: BAND#(MANUAL) 0.72 x10^3/uL; BANDS%(MANUAL) 3 % (0-7); LYMPH#(MANUAL) 1.43 x10^3/uL (1-3.4); LYMPHS% (MANUAL) 6 % (22-44); MONOS#(MANUAL) 0.48 x10^3/uL (0.3-2.7); MONOS% (MANUAL) 2 % (2-9); SEG#(MANUAL) 21.27 x10^3/uL (1.8-6.8); SEGS% (MANUAL) 89 % (42-75)
[2019-06-25 05:37] LABS: <PLATELET ESTIMATE> ADEQUATE; <PLT MORPHOLOGY> NORMAL PLT MORPH; <RBC MORPHOLOGY> NORMAL
[2019-06-25] MEDS: ENOXAPARIN 40 MG/0.4 ML SQ SCH (06:00)
[2019-06-25] MEDS ORDERED: ALBUTEROL/IPRATROPIUM 2.5MG/0.5MG, 3 ML NPPB SCH (06:00)
[2019-06-25] MEDS: GUAIFENESIN 200 MG TABLET PO SCH ×4 (06:31→20:44)
[2019-06-25] MEDS: methylPREDNISolone SOD SUCC 125 MG/2 ML IVPush SCH ×3 (06:31→18:37)
[2019-06-25 07:30] VITALS: BP 154/82
[2019-06-25] MEDS: ALBUTEROL/IPRATROPIUM 2.5MG/0.5MG, 3 ML NPPB SCH ×4 (08:00→19:26)
[2019-06-25] MEDS: GABAPENTIN 300 MG CAPSULE PO SCH (09:28)
[2019-06-25] MEDS: LISINOPRIL 40 MG TABLET PO SCH (09:28)
[2019-06-25] MEDS: HYDROCHLOROTHIAZIDE 25 MG TABLET PO SCH (09:29)
[2019-06-25] MEDS: BENZTROPINE 1 MG TABLET PO SCH (09:29)
[2019-06-25] MEDS ORDERED: OMNIPAQUE 350 MG/ML, 100ML BOTTLE ONE (10:09)
[2019-06-25 13:50] VITALS: BP 148/78
[2019-06-25 18:32] VITALS: BP 155/80
[2019-06-25] MEDS: OLANZAPINE 5 MG TABLET PO SCH (20:44)
[2019-06-25] MEDS: CALCIUM CARBONATE 500 MG TAB.CHEW PO PRN (21:57)
[2019-06-26] MEDS: methylPREDNISolone SOD SUCC 125 MG/2 ML IVPush SCH ×4 (00:01→20:49)
[2019-06-26] MEDS: DIAZEPAM 5 MG TABLET PO PRN ×2 (00:04→13:20)
[2019-06-26 04:00] VITALS: BP 167/89
[2019-06-26] MEDS: GUAIFENESIN 200 MG TABLET PO SCH ×4 (06:41→20:48)
[2019-06-26] MEDS: ALBUTEROL/IPRATROPIUM 2.5MG/0.5MG, 3 ML NPPB SCH ×4 (06:53→19:43)
[2019-06-26 08:28] VITALS: BP 138/73
[2019-06-26] MEDS: LISINOPRIL 40 MG TABLET PO SCH (09:52)
[2019-06-26] MEDS: HYDROCHLOROTHIAZIDE 25 MG TABLET PO SCH (09:52)
[2019-06-26] MEDS: BENZTROPINE 1 MG TABLET PO SCH (09:52)
[2019-06-26] MEDS: GABAPENTIN 300 MG CAPSULE PO SCH (09:52)
[2019-06-26] MEDS: ENOXAPARIN 40 MG/0.4 ML SQ SCH (09:53)
[2019-06-26 13:48] VITALS: BP 132/72
[2019-06-26 19:27] VITALS: BP 163/88
[2019-06-26] MEDS: CALCIUM CARBONATE 500 MG TAB.CHEW PO PRN (20:49)
[2019-06-26] MEDS: OLANZAPINE 5 MG TABLET PO SCH (20:51)
[2019-06-27 03:04] VITALS: BP 170/97
[2019-06-27] MEDS: GUAIFENESIN 200 MG TABLET PO SCH ×2 (05:37→09:49)
[2019-06-27 05:54] LABS: MEAN CORPUSCULAR HEMOGLOBIN 29.4 pg (27.5-34.5); MEAN CORPUSCULAR HGB CONC 32.8 g/dL (33.2-36.2); MEAN CORPUSCULAR VOLUME 89.4 fL (81-97); PLATELET COUNT 239 x10^3/uL (130-400); RED BLOOD COUNT 5.18 x10^6/uL (4.38-5.82); RED CELL DISTRIBUTION WIDTH 14.7 % (9.4-14.8)
[2019-06-27 06:40] LABS: BASOPHILS # (AUTO) 0.01 x10^3/uL (0-0.1); BASOPHILS % (AUTO) 0 % (0-1); EOSINOPHILS # (AUTO) 0.04 x10^3/uL (0-0.4); EOSINOPHILS % (AUTO) 0 % (1-7); LYMPHOCYTES # (AUTO) 0.54 x10^3/uL (1-3.4); LYMPHOCYTES % (AUTO) 3 % (22-44); MD SCAN; MONOCYTES # (AUTO) 0.45 x10^3/uL (0.2-0.8); MONOCYTES % (AUTO) 2 % (2-9); NEUTROPHILS # (AUTO) 17.94 x10^3/uL (1.8-6.8); NEUTROPHILS % (AUTO) 95 % (42-75)
[2019-06-27 08:03] VITALS: BP 177/91
[2019-06-27] MEDS: ALBUTEROL/IPRATROPIUM 2.5MG/0.5MG, 3 ML NPPB SCH (08:25)
[2019-06-27] MEDS ORDERED: AMLODIPINE 5 MG TABLET PO SCH (09:00)
[2019-06-27] MEDS: GABAPENTIN 300 MG CAPSULE PO SCH (09:48)
[2019-06-27] MEDS: HYDROCHLOROTHIAZIDE 25 MG TABLET PO SCH (09:48)
[2019-06-27] MEDS: LISINOPRIL 40 MG TABLET PO SCH (09:48)
[2019-06-27] MEDS: ENOXAPARIN 40 MG/0.4 ML SQ SCH (09:49)
[2019-06-27] MEDS: BENZTROPINE 1 MG TABLET PO SCH (09:49)
[2019-06-27] MEDS ORDERED: predniSONE 50MG TABLET ONE (09:56)
[2019-06-27] MEDS ORDERED: BUDE10.2 INH (10:13)
[2019-06-27] MEDS ORDERED: TIOT18CA INH (10:13)
[2019-06-27] MEDS ORDERED: HYDR25TA6 PO (10:13)
[2019-06-27] MEDS ORDERED: GUAI200T37 PO (10:13)
[2019-06-27] MEDS ORDERED: AMLO-150 PO (10:13)
[2019-06-27] MEDS ORDERED: CLON0.1T22 PO (10:13)
[2019-06-27] MEDS ORDERED: PRED20TA PO (13:23)
== END 2019-06-27 13:14 | disposition home or self-care (01) | DRG 190 ==
LOC: ED 23:59 → EDIP 06-24 00:41 → 4NW 06-24 01:29 → DCLOUNGE 06-27 12:58
PROVIDERS: ADMIT Family Medicine; ATTEND Family Medicine
DX: J44.1 Chronic obstructive pulmonary disease with (acute) exacerbation (principal); J96.01 Acute respiratory failure with hypoxia; F17.210 Nicotine dependence, cigarettes, uncomplicated; I10 Essential (primary) hypertension; D72.829 Elevated white blood cell count, unspecified; E78.00 Pure hypercholesterolemia, unspecified; F31.9 Bipolar disorder, unspecified; I25.2 Old myocardial infarction; Z59.0 Homelessness; R91.1 Solitary pulmonary nodule; Z88.8 Allergy status to other drugs, medicaments and biological substances
CPT/HCPCS: 36415; 71046; 71260; 80048; 80053; 80307; 83880; 84145; 84484; 85025; 87040; 93005; 94640; 96365; G0378; J1650; J1956; J7620; Q9967; J0360; J2930; J7512

== ENCOUNTER 2019-07-09 01:05 | Emergency (ER) | payer MEDICARE, MEDICAID ==
[~2019-07-09] VITALS: Ht 167.6 cm; Wt 68.2 kg
[~2019-07-09 01:05] MED LIST changes: +CLON0.1T22 PO; +DIAZ2TAB3 PO; +GUAI200T37 PO; +HYDR25TA6 PO; +LISI40TA PO; +OLAN5TAB5 PO; +PRED20TA PO; +TIOT18CA INH
[2019-07-09] MEDS ORDERED: ALBUTEROL/IPRATROPIUM 2.5MG/0.5MG, 3 ML NPPB ONE (01:30)
[2019-07-09 01:48] LABS: BASOPHILS # (AUTO) 0.03 x10^3/uL (0-0.1); BASOPHILS % (AUTO) 0 % (0-1); EOSINOPHILS # (AUTO) 0.31 x10^3/uL (0-0.4); EOSINOPHILS % (AUTO) 4 % (1-7); LYMPHOCYTES # (AUTO) 0.97 x10^3/uL (1-3.4); LYMPHOCYTES % (AUTO) 14 % (22-44); MD NO; MEAN CORPUSCULAR HEMOGLOBIN 29.4 pg (27.5-34.5); MEAN CORPUSCULAR HGB CONC 33.3 g/dL (33.2-36.2); MEAN CORPUSCULAR VOLUME 88.3 fL (81-97); MEAN PLATELET VOLUME 7.5 fL (7.4-10.4); MONOCYTES # (AUTO) 0.58 x10^3/uL (0.2-0.8); MONOCYTES % (AUTO) 8 % (2-9); NEUTROPHILS # (AUTO) 5.26 x10^3/uL (1.8-6.8); NEUTROPHILS % (AUTO) 74 % (42-75); PLATELET COUNT 206 x10^3/uL (130-400); RED BLOOD COUNT 4.81 x10^6/uL (4.38-5.82); RED CELL DISTRIBUTION WIDTH 14.1 % (9.4-14.8)
[2019-07-09 01:59] LABS: ALBUMIN 3.2 g/dL (3.4-5.0); ANION GAP 4 mmol/L (5-15); CALCIUM 8.2 mg/dL (8.5-10.1); CHLORIDE 111 mmol/L (98-107)
[2019-07-09] MEDS ORDERED: ALBUTEROL/IPRATROPIUM 2.5MG/0.5MG, 3 ML ONE (02:03)
[2019-07-09 02:04] LABS: ALANINE AMINOTRANSFERASE 33 U/L (12-78); ALKALINE PHOSPHATASE 75 U/L (45-117); BILIRUBIN,TOTAL 0.6 mg/dL (0.2-1.0); CREATININE 1.03 mg/dL (0.7-1.3); TOTAL PROTEIN 6.5 g/dL (6.4-8.2); TROPONIN I < 0.015 ng/mL (0.000-0.045)
[2019-07-09 02:53] VITALS: BP 177/87
== END 2019-07-09 02:58 | disposition home or self-care (01) ==
LOC: ED 02:30
DX: J44.1 Chronic obstructive pulmonary disease with (acute) exacerbation (principal); Z72.9 Problem related to lifestyle, unspecified; I10 Essential (primary) hypertension; K21.9 Gastro-esophageal reflux disease without esophagitis; E78.00 Pure hypercholesterolemia, unspecified; Z87.891 Personal history of nicotine dependence
CPT/HCPCS: 36415; 71046; 80053; 84484; 85025; 93005; 94640; 99284; J7512; J7620

== ENCOUNTER 2019-10-20 12:57 | Emergency (ER) | payer MEDICAID, MEDICARE ==
[~2019-10-20] VITALS: Ht 167.6 cm; Wt 82.8 kg
[~2019-10-20 12:57] MED LIST changes: -HYDR50TA13 PO; +HYDR50TA99 PO
[2019-10-20 13:02] VITALS: BP 194/53
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
== END 2019-10-20 13:58 | disposition home or self-care (01) ==
LOC: ED 13:53
DX: S50.861A Insect bite (nonvenomous) of right forearm, initial encounter (principal); S50.862A Insect bite (nonvenomous) of left forearm, initial encounter; L03.317 Cellulitis of buttock; I11.9 Hypertensive heart disease without heart failure; K21.9 Gastro-esophageal reflux disease without esophagitis; M10.9 Gout, unspecified; Z87.891 Personal history of nicotine dependence; W57.XXXA Bitten or stung by nonvenomous insect and other nonvenomous arthropods, initial encounter; Y93.89 Activity, other specified; Y92.89 Other specified places as the place of occurrence of the external cause; Y99.8 Other external cause status
CPT/HCPCS: 99283

== ENCOUNTER 2020-01-04 09:54 | Emergency (ER) | payer MEDICARE, MEDICAID ==
[~2020-01-04] VITALS: Ht 167.6 cm; Wt 86.5 kg
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
[2020-01-04] MEDS ORDERED: LIDOCAINE 4% CREAM 5GM TUBE TP ONE (11:30)
[2020-01-04 11:50] LABS: BASOPHILS # (AUTO) 0.01 x10^3/uL (0-0.1); BASOPHILS % (AUTO) 0 % (0-1); EOSINOPHILS # (AUTO) 0.56 x10^3/uL (0-0.4); EOSINOPHILS % (AUTO) 7 % (1-7); LYMPHOCYTES # (AUTO) 0.98 x10^3/uL (1-3.4); LYMPHOCYTES % (AUTO) 12 % (22-44); MD NO; MEAN CORPUSCULAR HEMOGLOBIN 28.8 pg (27.5-34.5); MEAN CORPUSCULAR HGB CONC 32.9 g/dL (33.2-36.2); MEAN CORPUSCULAR VOLUME 87.5 fL (81-97); MEAN PLATELET VOLUME 7.3 fL (7.4-10.4); MONOCYTES # (AUTO) 0.69 x10^3/uL (0.2-0.8); MONOCYTES % (AUTO) 9 % (2-9); NEUTROPHILS % (AUTO) 73 % (42-75); PLATELET COUNT 258 x10^3/uL (130-400); RED BLOOD COUNT 4.88 x10^6/uL (4.38-5.82); RED CELL DISTRIBUTION WIDTH 14.1 % (9.4-14.8)
[2020-01-04 11:58] LABS: ALANINE AMINOTRANSFERASE 26 U/L (12-78); ALBUMIN 3.3 g/dL (3.4-5.0); ANION GAP 5 mmol/L (5-15); CALCIUM 7.5 mg/dL (8.5-10.1); CHLORIDE 112 mmol/L (98-107); CREATININE 1.19 mg/dL (0.7-1.3)
[2020-01-04 12:00] LABS: ALKALINE PHOSPHATASE 78 U/L (45-117); BILIRUBIN,TOTAL 0.6 mg/dL (0.2-1.0); TOTAL PROTEIN 6.2 g/dL (6.4-8.2)
[2020-01-04] MEDS ORDERED: LIDOCAINE 4% CREAM 15GM TUBE TP ONE (12:00)
[2020-01-04 12:48] VITALS: BP 142/74
== END 2020-01-04 12:50 | disposition home or self-care (01) ==
LOC: ED 11:31
DX: L20.9 Atopic dermatitis, unspecified (principal); L01.01 Non-bullous impetigo; R06.02 Shortness of breath; I11.9 Hypertensive heart disease without heart failure; I25.2 Old myocardial infarction; J44.9 Chronic obstructive pulmonary disease, unspecified; K21.9 Gastro-esophageal reflux disease without esophagitis; M10.9 Gout, unspecified; Z86.718 Personal history of other venous thrombosis and embolism; Z87.891 Personal history of nicotine dependence; Z87.11 Personal history of peptic ulcer disease
CPT/HCPCS: 36415; 71045; 80053; 85025; 99284; J7512

== ENCOUNTER 2020-02-02 23:37 | Emergency (ER) | payer MEDICARE, MEDICAID ==
[~2020-02-02] VITALS: Ht 167.6 cm; Wt 85.0 kg
--- NOTE | 2020-02-03 01:00 | NUR ---
pt to room from lobby
[2020-02-03 02:10] LABS: BASOPHILS # (AUTO) 0.02 x10^3/uL (0-0.1); BASOPHILS % (AUTO) 0 % (0-1); EOSINOPHILS # (AUTO) 0.53 x10^3/uL (0-0.4); EOSINOPHILS % (AUTO) 10 % (1-7); LYMPHOCYTES # (AUTO) 0.89 x10^3/uL (1-3.4); LYMPHOCYTES % (AUTO) 17 % (22-44); MD NO; MEAN CORPUSCULAR HEMOGLOBIN 28.2 pg (27.5-34.5); MEAN CORPUSCULAR HGB CONC 32.9 g/dL (33.2-36.2); MEAN CORPUSCULAR VOLUME 85.8 fL (81-97); MEAN PLATELET VOLUME 7.2 fL (7.4-10.4); MONOCYTES # (AUTO) 0.59 x10^3/uL (0.2-0.8); MONOCYTES % (AUTO) 11 % (2-9); NEUTROPHILS # (AUTO) 3.35 x10^3/uL (1.8-6.8); NEUTROPHILS % (AUTO) 62 % (42-75); PLATELET COUNT 205 x10^3/uL (130-400); RED BLOOD COUNT 5.03 x10^6/uL (4.38-5.82)
[2020-02-03 02:21] LABS: ALANINE AMINOTRANSFERASE 31 U/L (12-78); ALBUMIN 3.7 g/dL (3.4-5.0); ANION GAP 7 mmol/L (5-15); CALCIUM 9.1 mg/dL (8.5-10.1); CHLORIDE 111 mmol/L (98-107); CREATININE 1.36 mg/dL (0.7-1.3)
[2020-02-03 02:23] LABS: ALKALINE PHOSPHATASE 65 U/L (45-117); BILIRUBIN,TOTAL 0.7 mg/dL (0.2-1.0); TOTAL PROTEIN 6.6 g/dL (6.4-8.2)
[2020-02-03] MEDS ORDERED: ONDANSETRON 2MG/ML, 2ML IVPush ONE (02:30)
[2020-02-03] MEDS ORDERED: SODIUM CHLORIDE 0.9% 1,000ML IVBOLUS ONE (02:30)
[2020-02-03] MEDS ORDERED: HYDROmorphone 1 MG/ML, 1ML INJ IVPush PRN (02:30)
[2020-02-03] MEDS ORDERED: ONDANSETRON 2MG/ML, 2ML ONE (02:34)
[2020-02-03] MEDS ORDERED: HYDROmorphone 1 MG/ML, 1ML INJ ONE (02:34)
[2020-02-03] MEDS ORDERED: GLUCAGON 1 MG ONE (02:44)
--- NOTE | 2020-02-03 03:35 | NUR ---
JOANNE RN: JACKSON STARTED IV, MEDICATED AND SIDE RAILS UP X [address] WILL MONITOR. IVF INFUSING.
[2020-02-03] MEDS ORDERED: DIPHENHYDRAMINE 50 MG/ML, 1ML IVPush ONE (05:00)
[2020-02-03] MEDS ORDERED: DIPHENHYDRAMINE 50 MG/ML, 1ML ONE (05:18)
[2020-02-03 05:26] VITALS: BP 123/63
== END 2020-02-03 05:29 | disposition home or self-care (01) ==
LOC: ED 02-03 03:10
DX: L20.9 Atopic dermatitis, unspecified (principal); I25.2 Old myocardial infarction; J44.9 Chronic obstructive pulmonary disease, unspecified; E78.00 Pure hypercholesterolemia, unspecified; K21.9 Gastro-esophageal reflux disease without esophagitis; I11.9 Hypertensive heart disease without heart failure; F17.200 Nicotine dependence, unspecified, uncomplicated; Z86.718 Personal history of other venous thrombosis and embolism
CPT/HCPCS: 36415; 80053; 85025; 96361; 96374; 96375; 99284; J1170; J1200; J2405; J7030; J7512

== ENCOUNTER 2020-04-10 00:01 | Emergency (ER) | payer MEDICARE, MEDICAID ==
[~2020-04-10] VITALS: Ht 167.6 cm; Wt 95.2 kg
[2020-04-10] MEDS ORDERED: SULF1TAB24 PO (00:16)
[2020-04-10] MEDS ORDERED: ALBU18HF INH (00:17)
[2020-04-10] MEDS ORDERED: SODIUM CHLORIDE FLUSH 10ML SYR IVF ONE (00:30)
[2020-04-10] MEDS ORDERED: ALBUTEROL/IPRATROPIUM 2.5MG/0.5MG, 3 ML NPPB ONE (00:30)
[2020-04-10] MEDS ORDERED: methylPREDNISolone SOD SUCC 125 MG/2 ML IVPush ONE (00:30)
[2020-04-10] MEDS ORDERED: ONDA4TAB7 PO (00:31)
[2020-04-10] MEDS ORDERED: ALBUTEROL/IPRATROPIUM 2.5MG/0.5MG, 3 ML ONE (00:32)
--- NOTE | 2020-04-10 00:36 | NUR ---
PT BIB [facility] FROM [address] FOR SOB, PT FOUND ON [address] AT 98% RA, WHEEZING NOTED THROUGHOUT LUNGS. PT NOTED TO HAVE RASH COVERING FULL TORSO, SMALL REDDENED BUMPS, PT ITCHING SEVERELY. NOTED TO HAVE A SMALL ABRASION ON LEFT LOWER BACK RIGHT ABOVE SACRUM. 1 TX ALBUTEROL EULALIA NUNO MD AT FOR EVAL AND POC. PT PLAED ON SPO2/BP/ECG MONITORING. WCTM. PRIMARY RN TANYA GIVEN REPORT
[2020-04-10] MEDS ORDERED: methylPREDNISolone SOD SUCC 125 MG/2 ML ONE (00:42)
[2020-04-10 00:53] VITALS: BP 121/76
[2020-04-10 00:58] LABS: BASOPHILS % (AUTO) 1 % (0-1); EOSINOPHILS % (AUTO) 8 % (1-7); LYMPHOCYTES % (AUTO) 23 % (22-44); MEAN CORPUSCULAR HEMOGLOBIN 28.3 pg (27.5-34.5); MEAN PLATELET VOLUME 7.4 fL (7.4-10.4); MONOCYTES % (AUTO) 10 % (2-9); NEUTROPHILS % (AUTO) 58 % (42-75); PLATELET COUNT 217 x10^3/uL (130-400); RED BLOOD COUNT 4.62 x10^6/uL (4.38-5.82); RED CELL DISTRIBUTION WIDTH 14.7 % (9.4-14.8)
[2020-04-10 00:59] LABS: ALBUMIN 3.4 g/dL (3.4-5.0); ANION GAP 3 mmol/L (5-15); CALCIUM 8.1 mg/dL (8.5-10.1); CHLORIDE 116 mmol/L (98-107); CREATININE 1.34 mg/dL (0.7-1.3)
[2020-04-10 01:00] LABS: MD NO
--- NOTE | 2020-04-10 01:01 | NUR ---
PT RESTING ON GURNEY EYES CLOSED NADN CALL LIGHT IN REACH
[2020-04-10 01:03] LABS: TROPONIN I < 0.015 ng/mL (0.000-0.045)
--- NOTE | 2020-04-10 02:12 | NUR ---
TASK RN: DC EDUCATION PROVIDED, PT DEMONSTRATES UNDERSTANDING. PT AMBULATED STEADILY TO DC WITH RN.
== END 2020-04-10 02:15 | disposition home or self-care (01) ==
LOC: ED 01:30
DX: J44.1 Chronic obstructive pulmonary disease with (acute) exacerbation (principal); R07.89 Other chest pain; R06.02 Shortness of breath; F17.210 Nicotine dependence, cigarettes, uncomplicated
CPT/HCPCS: 36415; 71045; 80048; 82040; 84484; 85025; 93005; 94640; 96374; 99285; J2930; 99406

== ENCOUNTER 2020-04-17 21:03 | Emergency (ER) | payer MEDICARE, MEDICAID ==
[~2020-04-17] VITALS: Ht 170.2 cm; Wt 84.1 kg
[~2020-04-17 21:03] MED LIST changes: +ALBU18HF INH; +ONDA4TAB7 PO; +SULF1TAB24 PO
--- NOTE | 2020-04-17 21:13 | NUR ---
Report received from MICKY Bloom. This RN to assume care.
[2020-04-17] MEDS ORDERED: ALBUTEROL SULFATE 2.5 MG/3 ML NPPB ONE (21:30)
[2020-04-17] MEDS ORDERED: DIPHENHYDRAMINE 25 MG CAPSULE PO ONE (21:30)
[2020-04-17] MEDS ORDERED: ALBUTEROL SULFATE 2.5 MG/3 ML ONE (21:33)
[2020-04-17] MEDS ORDERED: DIPHENHYDRAMINE 25 MG CAPSULE ONE (21:33)
[2020-04-17 21:40] LABS: BASOPHILS % (AUTO) 1 % (0-1); EOSINOPHILS % (AUTO) 1 % (1-7); LYMPHOCYTES % (AUTO) 20 % (22-44); MEAN CORPUSCULAR HEMOGLOBIN 28.4 pg (27.5-34.5); MEAN CORPUSCULAR HGB CONC 32.7 g/dL (33.2-36.2); MEAN PLATELET VOLUME 7.2 fL (7.4-10.4); MONOCYTES % (AUTO) 12 % (2-9); NEUTROPHILS % (AUTO) 67 % (42-75); PLATELET COUNT 285 x10^3/uL (130-400); RED BLOOD COUNT 4.66 x10^6/uL (4.38-5.82); RED CELL DISTRIBUTION WIDTH 15.1 % (9.4-14.8)
[2020-04-17 21:44] LABS: MD NO
[2020-04-17 21:46] LABS: ALBUMIN 3.6 g/dL (3.4-5.0); ANION GAP 5 mmol/L (5-15); CHLORIDE 113 mmol/L (98-107); CREATININE 1.26 mg/dL (0.7-1.3)
[2020-04-17 21:50] LABS: TROPONIN I < 0.015 ng/mL (0.000-0.045)
--- NOTE | 2020-04-17 22:04 | NUR ---
Patient finished neb tx. States breathing is the same. In NAD. C/o itching on torso. Patient states it is chronic and the Benedryl will not help.
--- NOTE | 2020-04-17 22:36 | NUR ---
Patient up to BR.
[2020-04-17 22:58] VITALS: BP 149/61
--- NOTE | 2020-04-17 22:59 | NUR ---
Discharge instructions given. All questions and concerns addressed. Patient ambulatory with a steady gait. Belongings with patient.
== END 2020-04-17 23:00 | disposition home or self-care (01) ==
LOC: ED 21:51
DX: J44.1 Chronic obstructive pulmonary disease with (acute) exacerbation (principal); R06.00 Dyspnea, unspecified; R94.31 Abnormal electrocardiogram [ECG] [EKG]; I11.9 Hypertensive heart disease without heart failure; E78.00 Pure hypercholesterolemia, unspecified; K21.9 Gastro-esophageal reflux disease without esophagitis; F17.200 Nicotine dependence, unspecified, uncomplicated; Z86.73 Personal history of transient ischemic attack (TIA), and cerebral infarction without residual deficits; Z87.11 Personal history of peptic ulcer disease
CPT/HCPCS: 36415; 71045; 80048; 82040; 84484; 85025; 93005; 94640; 99285; J7512; J7613; Q0163

== ENCOUNTER 2020-05-31 18:19 | Emergency (ER) | payer MEDICARE, MEDICAID ==
[~2020-05-31] VITALS: Ht 167.6 cm; Wt 86.8 kg
[~2020-05-31 18:19] MED LIST changes: +BETA15CR5 TP; +FLUT1BLS INH; +METO25TA35 PO; -NICO-487 TD; +NICO-587 TD
[2020-05-31 18:30] VITALS: BP 161/68
--- NOTE | 2020-05-31 18:37 | NUR ---
SILK SCREENER: PT REFUSING TEMP, NON-COMPLIANT WITH TRIAGE. REFUSING PIT DC FROM TRIAGE
== END 2020-05-31 21:42 | disposition home or self-care (01) ==
LOC: ED 21:36
DX: B86 Scabies (principal)
CPT/HCPCS: 99283

== ENCOUNTER 2021-01-31 22:24 | Emergency (ER) | payer MEDICARE, MEDICAID ==
[~2021-01-31 22:24] MED LIST changes: +AMLO-211 PO; -LISI40TA PO; +LISI40TA9 PO; +LOSA100T14 PO; +MIRT-14 PO; -MIRT-34 PO; +SULF-23 PO; -SULF1TAB24 PO
[2021-01-31] MEDS ORDERED: DIPHENHYDRAMINE 50 MG CAPSULE ONE (22:58)
[2021-01-31] MEDS ORDERED: DIPHENHYDRAMINE 25 MG CAPSULE PO ONE (23:00)
[2021-01-31 23:11] LABS: MEAN CORPUSCULAR HEMOGLOBIN 27.1 pg (27.5-34.5); MEAN CORPUSCULAR HGB CONC 33.5 g/dL (33.2-36.2); MEAN PLATELET VOLUME 7.1 fL (7.4-10.4); PLATELET COUNT 276 x10^3/uL (130-400); RED BLOOD COUNT 5.74 x10^6/uL (4.38-5.82); RED CELL DISTRIBUTION WIDTH 14.4 % (9.4-14.8)
[2021-01-31 23:20] LABS: ALANINE AMINOTRANSFERASE 19 U/L (12-78); ALBUMIN 2.7 g/dL (3.4-5.0); ANION GAP 8 mmol/L (5-15); CALCIUM 7.8 mg/dL (8.5-10.1); CHLORIDE 107 mmol/L (98-107); CREATININE 1.24 mg/dL (0.7-1.3)
[2021-01-31 23:22] LABS: ALKALINE PHOSPHATASE 85 U/L (45-117); BILIRUBIN,TOTAL 0.4 mg/dL (0.2-1.0); TOTAL PROTEIN 6.4 g/dL (6.4-8.2)
[2021-01-31 23:39] LABS: <PLATELET ESTIMATE> ADEQUATE; <PLT MORPHOLOGY> NORMAL PLT MORPH; <RBC MORPHOLOGY> NORMAL; BAND#(MANUAL) 0.14 x10^3/uL; BANDS%(MANUAL) 1 % (0-7); EOS#(MANUAL) 1.63 x10^3/uL (0.0-0.4); EOS% (MANUAL) 12 % (1-7); LYMPH#(MANUAL) 1.36 x10^3/uL (1-3.4); LYMPHS% (MANUAL) 10 % (22-44); METAMYELOCYTES# (MANUAL) 0.14 x10^3/uL (0-0); METAMYELOCYTES% (MANUAL) 1 % (0-1); MONOS#(MANUAL) 0.68 x10^3/uL (0.3-2.7); MONOS% (MANUAL) 5 % (2-9); SEG#(MANUAL) 9.66 x10^3/uL (1.8-6.8); SEGS% (MANUAL) 71 % (42-75)
--- NOTE | 2021-02-01 00:10 | NUR ---
PT AMBULATE TO RESTROOM WITH ASSISTANCE. TOLERATED WELL.
[2021-02-01 01:44] VITALS: BP 145/86
== END 2021-02-01 02:15 | disposition home or self-care (01) ==
LOC: ED 22:30
DX: L20.9 Atopic dermatitis, unspecified (principal); I10 Essential (primary) hypertension; E78.5 Hyperlipidemia, unspecified; J44.9 Chronic obstructive pulmonary disease, unspecified; K21.9 Gastro-esophageal reflux disease without esophagitis; I25.2 Old myocardial infarction; Z87.11 Personal history of peptic ulcer disease; E78.00 Pure hypercholesterolemia, unspecified; I11.9 Hypertensive heart disease without heart failure; Z86.73 Personal history of transient ischemic attack (TIA), and cerebral infarction without residual deficits
CPT/HCPCS: 36415; 80053; 83690; 85025; 99283; J7512; Q0163

== ENCOUNTER 2021-02-07 11:25 | Inpatient (IN) | payer MEDICARE, MEDICAID ==
[~2021-02-07] VITALS: Ht 167.6 cm; Wt 78.5 kg
[~2021-02-07 11:25] MED LIST changes: -LISI2.5T PO; +LISI2.5T12 PO
[2021-02-07 12:27] LABS: BASOPHILS % (AUTO) 1 % (0-1); EOSINOPHILS % (AUTO) 8 % (1-7); LYMPHOCYTES % (AUTO) 11 % (22-44); MEAN CORPUSCULAR HEMOGLOBIN 26.6 pg (27.5-34.5); MEAN CORPUSCULAR HGB CONC 32.7 g/dL (33.2-36.2); MEAN PLATELET VOLUME 6.7 fL (7.4-10.4); MONOCYTES % (AUTO) 6 % (2-9); NEUTROPHILS % (AUTO) 74 % (42-75); PLATELET COUNT 359 x10^3/uL (130-400); RED BLOOD COUNT 5.72 x10^6/uL (4.38-5.82); RED CELL DISTRIBUTION WIDTH 14.4 % (9.4-14.8)
[2021-02-07 12:35] LABS: ALANINE AMINOTRANSFERASE 24 U/L (12-78); ALBUMIN 2.6 g/dL (3.4-5.0); ANION GAP 8 mmol/L (5-15); CALCIUM 8.5 mg/dL (8.5-10.1); CHLORIDE 110 mmol/L (98-107)
[2021-02-07 12:38] LABS: ALKALINE PHOSPHATASE 99 U/L (45-117); BILIRUBIN,TOTAL 0.4 mg/dL (0.2-1.0); CREATININE 2.41 mg/dL (0.7-1.3); TOTAL PROTEIN 6.5 g/dL (6.4-8.2)
--- NOTE | 2021-02-07 15:02 | NUR ---
GAS BLENDER: PT TO ROOM FROM LOBBY
--- NOTE | 2021-02-07 15:22 | NUR ---
ASSUMED CARE OF PATIENT. PATIENT REPORTS REDNESS/DRYNESS ON SKIN ALL OVER. PT ALSO REPORTS LOOSE STOOL. VS STABLE. NO ACUTE DISTRESS NOTED. PT IS ALWAYS ON 3L NC. CALL LIGHT IN PLACE. WILL CONTINUE TO MONITOR.
--- NOTE | 2021-02-07 15:51 | NUR ---
pt has been seen by Dr Roe
[2021-02-07] MEDS ORDERED: ONDANSETRON 2MG/ML, 2ML IVPush ONE (16:00)
[2021-02-07] MEDS ORDERED: MORPHINE SULFATE 4 MG/ML, 1ML IVPush PRN (16:00)
[2021-02-07] MEDS ORDERED: DEXAMETHASONE 4 MG/ML, 1ML IVPush ONE (16:00)
[2021-02-07] MEDS ORDERED: SODIUM CHLORIDE 0.9% 1,000ML IVBOLUS ONE (16:00)
[2021-02-07] MEDS ORDERED: ONDANSETRON 2MG/ML, 2ML ONE (16:25)
[2021-02-07] MEDS ORDERED: DEXAMETHASONE 4 MG/ML, 1ML ONE (16:25)
[2021-02-07] MEDS ORDERED: MORPHINE SULFATE 4 MG/ML, 1ML ONE (16:25)
--- NOTE | 2021-02-07 16:37 | NUR ---
dr davila in room
[2021-02-07 17:43] LABS: HCT (SEDRATE) 46.5 % (39.2-51.8)
[2021-02-07 17:53] LABS: TROPONIN I < 0.015 ng/mL (0.000-0.045)
[2021-02-07 17:58] VITALS: BP 135/72
[2021-02-07] MEDS ORDERED: SENNA/DOCUSATE TABLET PO PRN (18:30)
[2021-02-07] MEDS ORDERED: ONDANSETRON ODT 4 MG PO PRN (18:30)
[2021-02-07] MEDS ORDERED: ONDANSETRON 2MG/ML, 2ML IVPush PRN (18:30)
[2021-02-07] MEDS ORDERED: ACETAMINOPHEN 325 MG TABLET PO PRN (18:30)
[2021-02-07] MEDS ORDERED: POLYETHYLENE GLYCOL 17 GM PACKET PO PRN (18:30)
[2021-02-07] MEDS ORDERED: ALBUTEROL HFA 90 MCG/SPRAY INH PRN (18:30)
[2021-02-07] MEDS: HEPARIN 5,000 UNITS/ML, 1ML SQ SCH (18:40)
[2021-02-07] MEDS: LACTATED RINGERS 1,000 ML IV SCH (18:40)
[2021-02-07 20:27] VITALS: BP 126/87
[2021-02-07] MEDS: FAMOTIDINE 20 MG/2 ML IVPush SCH (20:30)
[2021-02-07] MEDS ORDERED: hydrOXyzine 10 MG/5 ML ORAL SOL PO PRN (22:00)
[2021-02-07] MEDS ORDERED: DIPHENHYDRAMINE 25 MG CAPSULE PO PRN (22:00)
[2021-02-07 23:16] LABS: MICROSCOPIC INDICATED
[2021-02-08 00:40] VITALS: BP 102/57
[2021-02-08] MEDS: HEPARIN 5,000 UNITS/ML, 1ML SQ SCH ×3 (02:30→16:36)
[2021-02-08] MEDS: LACTATED RINGERS 1,000 ML IV SCH ×2 (02:36→12:38)
[2021-02-08 08:18] VITALS: BP 125/85
[2021-02-08] MEDS ORDERED: METO25TA35 PO (08:54)
[2021-02-08] MEDS ORDERED: ATOR-2 PO (08:54)
[2021-02-08] MEDS ORDERED: ASPI-963 PO (08:54)
[2021-02-08] MEDS ORDERED: HYDR50TA99 PO (08:54)
[2021-02-08] MEDS ORDERED: LISI-167 PO (08:54)
[2021-02-08] MEDS: FAMOTIDINE 20 MG/2 ML IVPush SCH (09:30)
[2021-02-08 09:36] LABS: BASOPHILS % (AUTO) 0 % (0-1); EOSINOPHILS % (AUTO) 0 % (1-7); LYMPHOCYTES % (AUTO) 19 % (22-44); MEAN CORPUSCULAR HEMOGLOBIN 26.9 pg (27.5-34.5); MEAN CORPUSCULAR HGB CONC 32.9 g/dL (33.2-36.2); MEAN PLATELET VOLUME 6.7 fL (7.4-10.4); MONOCYTES % (AUTO) 4 % (2-9); NEUTROPHILS % (AUTO) 77 % (42-75); PLATELET COUNT 308 x10^3/uL (130-400); RED BLOOD COUNT 4.68 x10^6/uL (4.38-5.82); RED CELL DISTRIBUTION WIDTH 14.7 % (9.4-14.8)
[2021-02-08 09:48] LABS: ALANINE AMINOTRANSFERASE 21 U/L (12-78); ALBUMIN 2.4 g/dL (3.4-5.0); ANION GAP 4 mmol/L (5-15); CALCIUM 8.3 mg/dL (8.5-10.1); CHLORIDE 113 mmol/L (98-107); CREATININE 1.58 mg/dL (0.7-1.3)
[2021-02-08 09:51] LABS: ALKALINE PHOSPHATASE 83 U/L (45-117); BILIRUBIN,TOTAL 0.3 mg/dL (0.2-1.0); TOTAL PROTEIN 5.9 g/dL (6.4-8.2)
[2021-02-08] MEDS ORDERED: ACETAMINOPHEN 500 MG TABLET PO PRN (10:30)
[2021-02-08] MEDS: TRIAMCINOLONE CRM 0.1%, 454GMS TP SCH ×3 (10:42→20:25)
[2021-02-08] MEDS: MINERA CRM, 60GM TP SCH ×3 (10:42→20:24)
[2021-02-08] MEDS: (Budesonide/Formoterol Fumarate (Symbicort 160-4.5 Mcg Inhaler INH SCH ×2 (11:30→21:00)
[2021-02-08] MEDS: TIOTROPIUM BROMIDE 18 MCG/INH INH SCH (11:30)
[2021-02-08] MEDS: FLUTICASONE/VILANTEROL 200-25MCG/INH INH SCH (11:30)
[2021-02-08] MEDS: ASPIRIN 81 MG TABLET EC PO SCH (12:34)
[2021-02-08] MEDS: METOPROLOL TARTRATE 25 MG TAB PO SCH ×2 (12:35→20:23)
[2021-02-08 13:07] VITALS: BP 141/78
[2021-02-08] MEDS ORDERED: LORazepam 2 MG/ML, 1ML IVPush ONE ×2 (14:30→16:00)
[2021-02-08] MEDS ORDERED: LIDOCAINE 1%, 10ML INFIL ONE (14:30)
[2021-02-08] MEDS ORDERED: MORPHINE SULFATE 4 MG/ML, 1ML ONE (15:35)
[2021-02-08] MEDS ORDERED: MORPHINE SULFATE 4 MG/ML, 1ML IVPush ONE (16:00)
[2021-02-08 20:09] VITALS: BP 152/92
[2021-02-08] MEDS ORDERED: ATORVASTATIN 40 MG TABLET PO SCH (21:00)
[2021-02-09] MEDS ORDERED: CALCIUM CARBONATE 500 MG TAB.CHEW PO PRN (00:30)
[2021-02-09 01:13] VITALS: BP 152/91
[2021-02-09] MEDS: LACTATED RINGERS 1,000 ML IV SCH ×2 (01:13→06:45)
[2021-02-09] MEDS: HEPARIN 5,000 UNITS/ML, 1ML SQ SCH ×2 (02:35→11:49)
[2021-02-09 05:27] LABS: BASOPHILS % (AUTO) 0 % (0-1); EOSINOPHILS % (AUTO) 0 % (1-7); LYMPHOCYTES % (AUTO) 12 % (22-44); MEAN PLATELET VOLUME 6.9 fL (7.4-10.4); MONOCYTES % (AUTO) 6 % (2-9); NEUTROPHILS % (AUTO) 82 % (42-75); PLATELET COUNT 341 x10^3/uL (130-400); RED BLOOD COUNT 4.65 x10^6/uL (4.38-5.82)
[2021-02-09 05:42] LABS: ALBUMIN 2.5 g/dL (3.4-5.0); ANION GAP 5 mmol/L (5-15); CALCIUM 8.4 mg/dL (8.5-10.1); CHLORIDE 112 mmol/L (98-107)
[2021-02-09 05:45] LABS: ALANINE AMINOTRANSFERASE 21 U/L (12-78); ALKALINE PHOSPHATASE 87 U/L (45-117); BILIRUBIN,TOTAL 0.2 mg/dL (0.2-1.0); CREATININE 1.41 mg/dL (0.7-1.3); TOTAL PROTEIN 6.1 g/dL (6.4-8.2)
[2021-02-09] MEDS: (Budesonide/Formoterol Fumarate (Symbicort 160-4.5 Mcg Inhaler INH SCH (09:00)
[2021-02-09] MEDS: TIOTROPIUM BROMIDE 18 MCG/INH INH SCH (09:00)
[2021-02-09] MEDS ORDERED: ATOR-2 PO (11:03)
[2021-02-09] MEDS ORDERED: ALBU18HF INH (11:03)
[2021-02-09] MEDS ORDERED: METO25TA35 PO (11:03)
[2021-02-09] MEDS ORDERED: AMLO-211 PO (11:03)
[2021-02-09] MEDS ORDERED: TIOT18CA INH (11:03)
[2021-02-09] MEDS ORDERED: ASPI-963 PO (11:03)
[2021-02-09] MEDS ORDERED: LISI-167 PO (11:03)
[2021-02-09] MEDS ORDERED: FLUT1BLS INH (11:03)
[2021-02-09] MEDS ORDERED: HYDR50TA99 PO (11:03)
[2021-02-09] MEDS ORDERED: TRIA15CR61 TP (11:07)
[2021-02-09 12:21] VITALS: BP 170/95
[2021-02-09] MEDS: ASPIRIN 81 MG TABLET EC PO SCH (13:28)
[2021-02-09] MEDS: FLUTICASONE/VILANTEROL 200-25MCG/INH INH SCH (13:28)
[2021-02-09] MEDS: METOPROLOL TARTRATE 25 MG TAB PO SCH (13:28)
[2021-02-09] MEDS: MINERA CRM, 60GM TP SCH ×2 (13:29→18:11)
[2021-02-09] MEDS: TRIAMCINOLONE CRM 0.1%, 454GMS TP SCH ×2 (13:29→18:11)
[2021-02-09] MEDS ORDERED: FAMO-79 PO (14:17)
[2021-02-09] MEDS ORDERED: METH4TAB2 PO (14:17)
[2021-02-09] MEDS ORDERED: DIPH25TA65 PO (14:17)
[2021-02-09] MEDS ORDERED: DIPHENHYDRAMINE 25 MG CAPSULE PO ONE (14:30)
[2021-02-09] MEDS ORDERED: FAMOTIDINE 10 MG TAB PO ONE (14:30)
[2021-02-09] MEDS ORDERED: FAMOTIDINE 20 MG TABLET PO SCH (21:00)
== END 2021-02-09 18:17 | disposition home or self-care (01) | DRG 391 ==
LOC: ED 11:29 → EDIP 16:42 → 4NW 17:50 → 3N 02-09 06:46
PROVIDERS: ADMIT Family Medicine; ATTEND Internal Medicine
PROC: 0HBBXZX Excision of Right Upper Arm Skin, External Approach, Diagnostic (ICD-10-PCS; principal; 2021-02-08)
DX: K52.9 Noninfective gastroenteritis and colitis, unspecified (principal); N17.0 Acute kidney failure with tubular necrosis; I50.42 Chronic combined systolic (congestive) and diastolic (congestive) heart failure; J96.11 Chronic respiratory failure with hypoxia; L26 Exfoliative dermatitis; F31.9 Bipolar disorder, unspecified; F41.9 Anxiety disorder, unspecified; I25.10 Atherosclerotic heart disease of native coronary artery without angina pectoris; I10 Essential (primary) hypertension; J44.9 Chronic obstructive pulmonary disease, unspecified; I25.2 Old myocardial infarction; Z59.0 Homelessness; Z72.0 Tobacco use; Z86.16 Personal history of COVID-19; Z86.718 Personal history of other venous thrombosis and embolism; Z98.61 Coronary angioplasty status; Z99.81 Dependence on supplemental oxygen; Z88.1 Allergy status to other antibiotic agents; Z82.5 Family history of asthma and other chronic lower respiratory diseases; Z82.49 Family history of ischemic heart disease and other diseases of the circulatory system
CPT/HCPCS: 36415; 71045; 74176; 80053; 81001; 83690; 84145; 84484; 85025; 85651; 86140; 88305; 93005; 96361; 96374; 96375; G0378; J1100; J1644; J2405; U0005; J2060; J2270; J7030; J7120; Q0163; Q0177; U0003

== ENCOUNTER 2021-02-11 18:23 | Inpatient (IN) | payer MEDICARE, MEDICAID ==
[~2021-02-11] VITALS: Ht 167.6 cm; Wt 76.9 kg
[~2021-02-11 18:23] MED LIST changes: +ASPI-963 PO; +ATOR-2 PO; +DIPH25TA65 PO; +FAMO-79 PO; +LISI-167 PO; +METH4TAB2 PO; +TRIA15CR61 TP
[2021-02-11] MEDS ORDERED: ONDANSETRON 2MG/ML, 2ML IVPush ONE (19:00)
[2021-02-11] MEDS ORDERED: MORPHINE SULFATE 4 MG/ML, 1ML IVPush PRN (19:00)
--- NOTE | 2021-02-11 19:01 | NUR ---
PT. ARRIVES BY [facility] FROM [facility] WITH C/O A 3 DAY HX OF ABD. PAIN WITH ASSOCIATED NAUSEA, PAIN AND DIARRHEA. PT. DENIES VOMITING. PT. ALSO HAS C/O UPPER EXTREMITY PAIN. BOTH ARMS HAVE EDEMA PRESENT WITH REDNESS, HEAT AND SWELLING. PT. HAS SCRATCHES TO HIS ARMS WELL. HIS ENTIRE BODY HAS A RASH AND HIS SKIN IS FLAKING HEAD TO TOE. PT. IS EXTREMLY ANXIOUS AND UNCOOPERATIVE. THE RN EXPLAINED TO THE PT. THAT SHE NEED TO GET IV ACCESS. THE PT. IS REFUSING TO COOPERATE. I EXPLAINED TO THE PT. IN ORDER TO HELP HIM HE MUST HELP ME HELP HIM AND BE COOPERATIVE. PT. HAS POOR VENOUS ACCESS IN HIS UPPER EXTREMITIES AND BOTH LOOK INFECTED. I EXPLAINED TO THE PT. THAT HE HAS A GOOD VEIN IN HIS RIGHT FOOT THAT COULD BE USED. HE SCREAMED AT ME AND SAID "NO" AND CONTINUED SCREAMING. I THE RN EXPLAINED TO THE PT. THAT I WOULD NOT TOLERATE HIM SCREAMING AT ME AND THAT I AM TRYING TO BE HELPFUL TO HIM. I EDUCATED HIM ON THE INACCESSIBILITY TO VENOUS ACCESS IN HIS UPPER EXTREMITIES. KETURAH PEÑA FURTHER EDUCATED THE PT. AND HELPED CALM HIM DOWN. WITH MARIANA'S ASSISTANCE IV ACCESS WAS ESTABLISHED IN THE PT.'S RIGHT FOOT AFTER HE WAS AGREEABLE. THE PLAN OF CARE WAS DISCUSSED WITH DR. LOPEZ AND HE WAS FINE WITH THE PT.'S IV BEING PLACED IN HIS RIGHT FOOT. SIDERAILS REMAIN UP X 2 WITH THE CALL LIGHT IN PLACE. PT.'S 12 LEAD EKG IS DONE AND HE IS ON THE CP MONITOR. HIS RESPIRATIONS ARE EUPNEIC AND HE IS ON HIS BASELINE 3 LITERS 02 THAT HE WEARS AT HOME. HIS LUNGS ARE CTA THROUGHOUT. HIS ABD. IS SOFT AND ROUND WITH BS + X 4 QUADS. HE MOVES ALL EXTREMITIES WNL AND HIS CAP REFILL IS BRISK, LESS THAN 2 SECONDS. PT. WILL BE MEDICATED ORDERED. HIS CALL LIGHT IS IN REACH.
[2021-02-11] MEDS ORDERED: MORPHINE SULFATE 4 MG/ML, 1ML ONE (19:14)
[2021-02-11] MEDS ORDERED: ONDANSETRON 2MG/ML, 2ML ONE (19:14)
--- NOTE | 2021-02-11 19:23 | NUR ---
PT. WAS MEDICATED ORDRED. LABS WERE DRAWN AND SENT.
[2021-02-11 19:32] LABS: BASOPHILS % (AUTO) 1 % (0-1); EOSINOPHILS % (AUTO) 4 % (1-7); LYMPHOCYTES % (AUTO) 10 % (22-44); MEAN CORPUSCULAR HGB CONC 33.1 g/dL (33.2-36.2); MEAN PLATELET VOLUME 6.7 fL (7.4-10.4); MONOCYTES % (AUTO) 7 % (2-9); NEUTROPHILS % (AUTO) 79 % (42-75); PLATELET COUNT 309 x10^3/uL (130-400); RED BLOOD COUNT 4.98 x10^6/uL (4.38-5.82)
[2021-02-11 19:39] LABS: ALANINE AMINOTRANSFERASE 18 U/L (12-78); ALBUMIN 2.3 g/dL (3.4-5.0); ANION GAP 7 mmol/L (5-15); CALCIUM 7.9 mg/dL (8.5-10.1); CHLORIDE 105 mmol/L (98-107)
[2021-02-11 19:41] LABS: ALKALINE PHOSPHATASE 88 U/L (45-117); BILIRUBIN,TOTAL 0.7 mg/dL (0.2-1.0); TOTAL PROTEIN 6.4 g/dL (6.4-8.2)
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
--- NOTE | 2021-02-11 20:51 | NUR ---
BEDSIDE REPORT FROM NAGA RN, PT CARE TRANSFERRED AT THIS TIME.
[2021-02-11] MEDS ORDERED: DIPHENHYDRAMINE 50 MG/ML, 1ML IVPush ONE (21:00)
[2021-02-11] MEDS ORDERED: DIPHENHYDRAMINE 50 MG/ML, 1ML ONE (21:07)
[2021-02-11] MEDS ORDERED: CEFTRIAXONE 1,000 MG in DEXTROSE 5% 50 ML IVPB ONE (21:30)
--- NOTE | 2021-02-11 21:34 | NUR ---
PT MEDICATED PER MAR, Patient is resting comfortably in bed. Bed in lowest, rails engaged, call light on lap. TO BE ADMITTED. WCTM.
--- NOTE | 2021-02-11 22:19 | NUR ---
PT IS A POOR HISTORIAN FOR CURRENT MEDICATIONS, UNABLE TO RECALL DOSES OR LAST BP MEDICATION AT THIS TIME
[2021-02-11] MEDS ORDERED: ONDANSETRON 2MG/ML, 2ML IVPush PRN (23:00)
[2021-02-11] MEDS ORDERED: DOCUSATE 100 MG CAPSULE PO PRN (23:00)
[2021-02-11] MEDS: HEPARIN 5,000 UNITS/ML, 1ML SQ SCH (23:56)
[2021-02-12] MEDS ORDERED: DIPHENHYDRAMINE 25 MG CAPSULE PO PRN
[2021-02-12 01:37] VITALS: BP 155/85
[2021-02-12] MEDS ORDERED: DIPHENHYDRAMINE 50 MG/ML, 1ML IVPush ONE (02:30)
[2021-02-12 03:10] LABS: CLOSTRIDIUM DIFFICILE ANTIGEN POSITIVE; CLOSTRIDIUM DIFFICILE TOXIN NEGATIVE (Negative)
[2021-02-12 05:08] LABS: BASOPHILS % (AUTO) 1 % (0-1); EOSINOPHILS % (AUTO) 6 % (1-7); LYMPHOCYTES % (AUTO) 11 % (22-44); MEAN CORPUSCULAR HEMOGLOBIN 26.8 pg (27.5-34.5); MEAN CORPUSCULAR HGB CONC 33.2 g/dL (33.2-36.2); MEAN PLATELET VOLUME 6.5 fL (7.4-10.4); MONOCYTES % (AUTO) 9 % (2-9); NEUTROPHILS % (AUTO) 74 % (42-75); PLATELET COUNT 288 x10^3/uL (130-400); RED BLOOD COUNT 4.74 x10^6/uL (4.38-5.82); RED CELL DISTRIBUTION WIDTH 14.5 % (9.4-14.8)
[2021-02-12 05:29] LABS: CALCIUM 7.5 mg/dL (8.5-10.1); CHLORIDE 107 mmol/L (98-107)
[2021-02-12 05:33] LABS: ANION GAP 6 mmol/L (5-15); CREATININE 1.15 mg/dL (0.7-1.3)
[2021-02-12 06:56] VITALS: BP 101/57
[2021-02-12] MEDS: HEPARIN 5,000 UNITS/ML, 1ML SQ SCH ×2 (08:00→16:00)
[2021-02-12] MEDS ORDERED: DIPHENHYDRAMINE 50 MG/ML, 1ML ONE (10:45)
[2021-02-12] MEDS: DIPHENHYDRAMINE 50 MG/ML, 1ML IVPush PRN ×2 (10:47→18:55)
[2021-02-12] MEDS: CEFAZOLIN 2,000 MG in SODIUM CHLORIDE 0.9% 50 ML IV SCH ×2 (11:23→18:30)
[2021-02-12 16:17] VITALS: BP 107/62
[2021-02-12] MEDS ORDERED: CEFTRIAXONE 1,000 MG in DEXTROSE 5% 50 ML IVPB SCH (21:00)
[2021-02-12] MEDS ORDERED: TRIAMCINOLONE OINT 0.1%, 15GM TP SCH (21:00)
[2021-02-12 21:12] VITALS: BP 123/69
[2021-02-12] MEDS: TRIAMCINOLONE CRM 0.1%, 15GM TP SCH (21:39)
[2021-02-13] MEDS: DIPHENHYDRAMINE 50 MG/ML, 1ML IVPush PRN ×3 (00:57→18:37)
[2021-02-13 02:06] VITALS: BP 109/61
[2021-02-13] MEDS: CEFAZOLIN 2,000 MG in SODIUM CHLORIDE 0.9% 50 ML IV SCH ×3 (02:09→18:33)
[2021-02-13 05:00] LABS: BASOPHILS % (AUTO) 0 % (0-1); EOSINOPHILS % (AUTO) 0 % (1-7); LYMPHOCYTES % (AUTO) 14 % (22-44); MEAN CORPUSCULAR HEMOGLOBIN 27.3 pg (27.5-34.5); MEAN CORPUSCULAR HGB CONC 33.8 g/dL (33.2-36.2); MEAN PLATELET VOLUME 7.1 fL (7.4-10.4); MONOCYTES % (AUTO) 10 % (2-9); NEUTROPHILS % (AUTO) 75 % (42-75); PLATELET COUNT 267 x10^3/uL (130-400); RED BLOOD COUNT 4.18 x10^6/uL (4.38-5.82); RED CELL DISTRIBUTION WIDTH 14.4 % (9.4-14.8)
[2021-02-13 05:09] LABS: ALANINE AMINOTRANSFERASE 16 U/L (12-78); ANION GAP 4 mmol/L (5-15); CALCIUM 7.7 mg/dL (8.5-10.1); CHLORIDE 114 mmol/L (98-107)
[2021-02-13 05:12] LABS: ALKALINE PHOSPHATASE 70 U/L (45-117); BILIRUBIN,TOTAL 0.2 mg/dL (0.2-1.0); CREATININE 1.06 mg/dL (0.7-1.3); TOTAL PROTEIN 5.8 g/dL (6.4-8.2)
[2021-02-13 07:03] VITALS: BP 136/71
[2021-02-13] MEDS: HEPARIN 5,000 UNITS/ML, 1ML SQ SCH ×3 (07:34→16:00)
[2021-02-13] MEDS: TRIAMCINOLONE CRM 0.1%, 15GM TP SCH (08:54)
[2021-02-13] MEDS: FAMOTIDINE 20 MG TABLET PO SCH ×2 (08:59→20:59)
[2021-02-13] MEDS ORDERED: methylPREDNISolone SOD SUCC 40 MG/ML IV SCH (09:00)
[2021-02-13] MEDS ORDERED: DIPHENHYDRAMINE 50 MG/ML, 1ML IVPush STA (09:19)
[2021-02-13 13:52] VITALS: BP 140/80
[2021-02-13 20:10] VITALS: BP 154/84
[2021-02-13] MEDS: TRIAMCINOLONE CRM 0.1%, 454GMS TP SCH (20:59)
[2021-02-13] MEDS: methylPREDNISolone SOD SUCC 40 MG/ML IV SCH (20:59)
[2021-02-14] VITALS (11 sets, daily range): BP systolic 158–198; BP diastolic 80–108
[2021-02-14] MEDS: DIPHENHYDRAMINE 50 MG/ML, 1ML IVPush PRN ×4 (01:03→20:34)
[2021-02-14] MEDS: CEFAZOLIN 2,000 MG in SODIUM CHLORIDE 0.9% 50 ML IV SCH ×3 (02:50→18:44)
[2021-02-14] MEDS: ACETAMINOPHEN 325 MG TABLET PO PRN ×2 (05:01→14:02)
[2021-02-14 06:18] LABS: ALBUMIN 2.3 g/dL (3.4-5.0); ANION GAP 5 mmol/L (5-15); CALCIUM 8.2 mg/dL (8.5-10.1); CHLORIDE 112 mmol/L (98-107)
[2021-02-14 06:19] LABS: BASOPHILS % (AUTO) 0 % (0-1); EOSINOPHILS % (AUTO) 0 % (1-7); LYMPHOCYTES % (AUTO) 11 % (22-44); MEAN CORPUSCULAR HGB CONC 33.2 g/dL (33.2-36.2); MEAN PLATELET VOLUME 7.4 fL (7.4-10.4); MONOCYTES % (AUTO) 6 % (2-9); NEUTROPHILS % (AUTO) 83 % (42-75); PLATELET COUNT 289 x10^3/uL (130-400); RED BLOOD COUNT 4.14 x10^6/uL (4.38-5.82)
[2021-02-14 06:22] LABS: ALANINE AMINOTRANSFERASE 15 U/L (12-78); ALKALINE PHOSPHATASE 72 U/L (45-117); BILIRUBIN,TOTAL 0.2 mg/dL (0.2-1.0); CREATININE 1.03 mg/dL (0.7-1.3); TOTAL PROTEIN 6.3 g/dL (6.4-8.2)
[2021-02-14] MEDS: HEPARIN 5,000 UNITS/ML, 1ML SQ SCH ×4 (08:00→16:00)
[2021-02-14] MEDS: FAMOTIDINE 20 MG TABLET PO SCH ×2 (08:36→20:35)
[2021-02-14] MEDS: methylPREDNISolone SOD SUCC 40 MG/ML IV SCH ×2 (08:37→20:35)
[2021-02-14] MEDS: TRIAMCINOLONE CRM 0.1%, 454GMS TP SCH ×2 (08:41→20:50)
[2021-02-14] MEDS ORDERED: methylPREDNISolone SOD SUCC 40 MG/ML IV SCH (09:00)
[2021-02-14] MEDS ORDERED: hydrALAzine 20 MG/ML, 1ML ONE (13:38)
[2021-02-14] MEDS: hydrALAzine 20 MG/ML, 1ML IV PRN ×2 (14:02→20:35)
[2021-02-14] MEDS: CETIRIZINE 10 MG TABLET PO SCH (17:39)
[2021-02-14] MEDS ORDERED: hydrALAzine 20 MG/ML, 1ML IV ONE (22:00)
[2021-02-14] MEDS: ALBUTEROL HFA 90 MCG/SPRAY INH PRN (22:59)
[2021-02-14] MEDS ORDERED: ENALAPRILAT 1.25 MG/ML, 2ML IV PRN (23:00)
[2021-02-15] MEDS: HEPARIN 5,000 UNITS/ML, 1ML SQ SCH ×4 (00:17→20:55)
[2021-02-15 01:05] VITALS: BP 180/85
[2021-02-15] MEDS ORDERED: hydrALAzine 20 MG/ML, 1ML IV PRN (02:00)
[2021-02-15] MEDS: DIPHENHYDRAMINE 50 MG/ML, 1ML IVPush PRN ×3 (02:15→20:32)
[2021-02-15] MEDS: CEFAZOLIN 2,000 MG in SODIUM CHLORIDE 0.9% 50 ML IV SCH ×3 (02:15→18:26)
[2021-02-15 02:24] VITALS: BP 178/98
[2021-02-15] MEDS ORDERED: ENALAPRILAT 1.25 MG/ML, 2ML IV PRN (07:00)
[2021-02-15] MEDS: methylPREDNISolone SOD SUCC 40 MG/ML IV SCH ×2 (08:22→20:32)
[2021-02-15] MEDS: CETIRIZINE 10 MG TABLET PO SCH (08:23)
[2021-02-15] MEDS: FAMOTIDINE 20 MG TABLET PO SCH ×2 (08:23→20:32)
[2021-02-15] MEDS: TRIAMCINOLONE CRM 0.1%, 454GMS TP SCH ×2 (08:23→20:33)
[2021-02-15 09:00] VITALS: BP 179/115
[2021-02-15] MEDS: FLUTICASONE/VILANTEROL 100-25MCG/INH INH SCH (10:39)
[2021-02-15 13:47] VITALS: BP 168/91
[2021-02-15 19:02] VITALS: BP 162/94
[2021-02-15] MEDS: MELATONIN 5 MG TABLET PO PRN (20:32)
[2021-02-15 21:55] VITALS: BP 166/94
[2021-02-16] VITALS (7 sets, daily range): BP systolic 143–189; BP diastolic 85–108
[2021-02-16] MEDS: CEFAZOLIN 2,000 MG in SODIUM CHLORIDE 0.9% 50 ML IV SCH ×3 (02:17→19:10)
[2021-02-16] MEDS: DIPHENHYDRAMINE 50 MG/ML, 1ML IVPush PRN ×2 (02:35→08:33)
[2021-02-16] MEDS: HEPARIN 5,000 UNITS/ML, 1ML SQ SCH ×2 (08:00→15:55)
[2021-02-16] MEDS: FLUTICASONE/VILANTEROL 100-25MCG/INH INH SCH (08:29)
[2021-02-16] MEDS: methylPREDNISolone SOD SUCC 40 MG/ML IV SCH ×3 (08:29→20:20)
[2021-02-16] MEDS: FAMOTIDINE 20 MG TABLET PO SCH ×2 (08:30→20:20)
[2021-02-16] MEDS: CETIRIZINE 10 MG TABLET PO SCH (08:30)
[2021-02-16] MEDS: TRIAMCINOLONE CRM 0.1%, 454GMS TP SCH ×2 (08:30→20:22)
[2021-02-16] MEDS ORDERED: DIAZEPAM 5 MG TABLET PO ONE (20:30)
[2021-02-17] MEDS: HEPARIN 5,000 UNITS/ML, 1ML SQ SCH ×3 (00:05→16:00)
[2021-02-17 00:32] VITALS: BP 148/107
[2021-02-17] MEDS: DIPHENHYDRAMINE 50 MG/ML, 1ML IVPush PRN ×3 (02:12→17:29)
[2021-02-17] MEDS: CEFAZOLIN 2,000 MG in SODIUM CHLORIDE 0.9% 50 ML IV SCH ×2 (02:13→11:11)
[2021-02-17 07:58] VITALS: BP 182/111
[2021-02-17] MEDS: TRIAMCINOLONE CRM 0.1%, 454GMS TP SCH ×2 (09:00→21:23)
[2021-02-17] MEDS: FAMOTIDINE 20 MG TABLET PO SCH ×2 (09:21→21:22)
[2021-02-17] MEDS: FLUTICASONE/VILANTEROL 100-25MCG/INH INH SCH (09:21)
[2021-02-17] MEDS: CETIRIZINE 10 MG TABLET PO SCH (09:21)
[2021-02-17] MEDS: methylPREDNISolone SOD SUCC 40 MG/ML IV SCH ×3 (09:21→21:23)
[2021-02-17 11:14] VITALS: BP 151/101
[2021-02-17 13:52] VITALS: BP 153/91
[2021-02-17 19:23] LABS: BASOPHILS % (AUTO) 0 % (0-1); EOSINOPHILS % (AUTO) 0 % (1-7); LYMPHOCYTES % (AUTO) 5 % (22-44); MEAN CORPUSCULAR HEMOGLOBIN 26.7 pg (27.5-34.5); MEAN CORPUSCULAR HGB CONC 32.4 g/dL (33.2-36.2); MEAN PLATELET VOLUME 7.4 fL (7.4-10.4); MONOCYTES % (AUTO) 6 % (2-9); NEUTROPHILS % (AUTO) 89 % (42-75); PLATELET COUNT 321 x10^3/uL (130-400); RED BLOOD COUNT 4.55 x10^6/uL (4.38-5.82)
[2021-02-17] MEDS: PANTOPRAZOLE 40MG TABLET PO SCH (19:25)
[2021-02-17] MEDS: CEFAZOLIN PMX 2GM/50ML 50 ML IVPB SCH (19:25)
[2021-02-17 20:26] VITALS: BP 154/86
[2021-02-18] MEDS: DIPHENHYDRAMINE 50 MG/ML, 1ML IVPush PRN ×3 (01:24→22:40)
[2021-02-18] MEDS: HEPARIN 5,000 UNITS/ML, 1ML SQ SCH ×3 (01:24→16:00)
[2021-02-18 01:33] VITALS: BP 158/88
[2021-02-18] MEDS ORDERED: CEFAZOLIN PMX 2GM/50ML 50 ML IVPB SCH (02:30)
[2021-02-18] MEDS: CEFAZOLIN PMX 2GM/50ML 50 ML IVPB SCH ×3 (04:11→22:29)
[2021-02-18 05:58] LABS: CHLORIDE 106 mmol/L (98-107)
[2021-02-18 06:04] LABS: ALANINE AMINOTRANSFERASE 73 U/L (12-78); ALKALINE PHOSPHATASE 102 U/L (45-117); ANION GAP 20 mmol/L (5-15); BILIRUBIN,TOTAL 0.2 mg/dL (0.2-1.0); CREATININE 1.06 mg/dL (0.7-1.3); TOTAL PROTEIN 6.7 g/dL (6.4-8.2)
[2021-02-18 06:44] LABS: CALCIUM 8.6 mg/dL (8.5-10.1)
[2021-02-18 08:08] VITALS: BP 160/93
[2021-02-18] MEDS: FAMOTIDINE 20 MG TABLET PO SCH ×2 (08:43→21:52)
[2021-02-18] MEDS: methylPREDNISolone SOD SUCC 40 MG/ML IV SCH ×3 (08:43→22:40)
[2021-02-18] MEDS: FLUTICASONE/VILANTEROL 100-25MCG/INH INH SCH (08:43)
[2021-02-18] MEDS: PANTOPRAZOLE 40MG TABLET PO SCH ×2 (08:43→17:14)
[2021-02-18] MEDS: CETIRIZINE 10 MG TABLET PO SCH (08:43)
[2021-02-18] MEDS: TRIAMCINOLONE CRM 0.1%, 454GMS TP SCH ×2 (08:44→21:53)
[2021-02-18 08:49] LABS: BASOPHILS % (AUTO) 1 % (0-1); EOSINOPHILS % (AUTO) 0 % (1-7); LYMPHOCYTES % (AUTO) 6 % (22-44); MEAN CORPUSCULAR HEMOGLOBIN 26.8 pg (27.5-34.5); MEAN CORPUSCULAR HGB CONC 32.3 g/dL (33.2-36.2); MEAN PLATELET VOLUME 7.2 fL (7.4-10.4); MONOCYTES % (AUTO) 5 % (2-9); NEUTROPHILS % (AUTO) 88 % (42-75); PLATELET COUNT 342 x10^3/uL (130-400); RED BLOOD COUNT 4.76 x10^6/uL (4.38-5.82); RED CELL DISTRIBUTION WIDTH 15.6 % (9.4-14.8)
[2021-02-18 16:41] VITALS: BP 119/55
[2021-02-18] MEDS: SODIUM CHLORIDE 0.9% 1,000 ML IV SCH (17:00)
[2021-02-18 18:49] VITALS: BP 174/97
[2021-02-18] MEDS: ALPRazolam 1MG TAB PO PRN (22:40)
[2021-02-19] MEDS: SODIUM CHLORIDE 0.9% 1,000 ML IV SCH ×2 (06:20→19:40)
[2021-02-19] MEDS: CEPHALEXIN 500 MG CAPSULE PO SCH ×2 (06:32→13:03)
[2021-02-19 07:17] LABS: MEAN CORPUSCULAR HEMOGLOBIN 26.6 pg (27.5-34.5); MEAN CORPUSCULAR HGB CONC 32.4 g/dL (33.2-36.2); MEAN PLATELET VOLUME 7.4 fL (7.4-10.4); PLATELET COUNT 300 x10^3/uL (130-400); RED BLOOD COUNT 4.78 x10^6/uL (4.38-5.82); RED CELL DISTRIBUTION WIDTH 15.7 % (9.4-14.8)
[2021-02-19 07:23] LABS: CHLORIDE 103 mmol/L (98-107)
[2021-02-19 07:29] LABS: ALANINE AMINOTRANSFERASE 55 U/L (12-78); ALBUMIN 2.5 g/dL (3.4-5.0); ALKALINE PHOSPHATASE 99 U/L (45-117); ANION GAP 6 mmol/L (5-15); BILIRUBIN,TOTAL 0.4 mg/dL (0.2-1.0); CALCIUM 8.4 mg/dL (8.5-10.1); CREATININE 0.75 mg/dL (0.7-1.3); TOTAL PROTEIN 6.4 g/dL (6.4-8.2)
[2021-02-19] MEDS: HEPARIN 5,000 UNITS/ML, 1ML SQ SCH ×3 (08:00→16:00)
[2021-02-19 08:17] LABS: BAND#(MANUAL) 0.86 x10^3/uL; BANDS%(MANUAL) 4 % (0-7); LYMPHS% (MANUAL) 6 % (22-44); METAMYELOCYTES# (MANUAL) 0.22 x10^3/uL (0-0); METAMYELOCYTES% (MANUAL) 1 % (0-1); MONOS#(MANUAL) 1.51 x10^3/uL (0.3-2.7); MONOS% (MANUAL) 7 % (2-9); MYELOCYTES# (MANUAL) 0.22 x10^3/uL (0-0); MYELOCYTES% (MANUAL) 1 % (0-0); SEGS% (MANUAL) 81 % (42-75)
[2021-02-19 08:18] LABS: <PLATELET ESTIMATE> ADEQUATE; <PLT MORPHOLOGY> NORMAL PLT MORPH; ANISOCYTOSIS 1+
[2021-02-19 08:49] VITALS: BP 146/90
[2021-02-19] MEDS: methylPREDNISolone SOD SUCC 40 MG/ML IV SCH ×2 (09:00→16:00)
[2021-02-19] MEDS: FLUTICASONE/VILANTEROL 100-25MCG/INH INH SCH (09:09)
[2021-02-19] MEDS: CETIRIZINE 10 MG TABLET PO SCH (09:09)
[2021-02-19] MEDS: PANTOPRAZOLE 40MG TABLET PO SCH ×2 (09:09→16:11)
[2021-02-19] MEDS: FAMOTIDINE 20 MG TABLET PO SCH ×2 (09:09→20:04)
[2021-02-19] MEDS: TRIAMCINOLONE CRM 0.1%, 454GMS TP SCH ×2 (09:10→21:45)
[2021-02-19 13:12] VITALS: BP 127/75
[2021-02-19] MEDS ORDERED: OMNIPAQUE 350 MG/ML, 150 ML BOTTLE ONE (16:00)
[2021-02-19] MEDS: PIPERACILLIN/TAZO 3.375 GM in DEXTROSE 5% 50 ML IV SCH (16:00)
[2021-02-19] MEDS: ALBUTEROL HFA 90 MCG/SPRAY INH PRN (17:50)
[2021-02-19] MEDS ORDERED: ALBUTEROL/IPRATROPIUM 2.5MG/0.5MG, 3 ML ONE (19:10)
[2021-02-19 19:31] VITALS: BP 134/88
[2021-02-19 19:57] VITALS: BP 91/54
[2021-02-19] MEDS: OXYcodone IR 5MG TABLET PO PRN (20:04)
[2021-02-19 20:49] VITALS: BP_SYST 100; BP_SYST 98; BP_DIAS 66
[2021-02-19 21:19] VITALS: BP 90/56
[2021-02-19] MEDS: DIPHENHYDRAMINE 50 MG/ML, 1ML IVPush PRN (23:29)
[2021-02-20 00:05] VITALS: BP 134/77
[2021-02-20] MEDS: ACETAMINOPHEN 325 MG TABLET PO PRN (02:10)
[2021-02-20] MEDS: PIPERACILLIN/TAZO 3.375 GM in DEXTROSE 5% 50 ML IV SCH ×4 (02:17→19:53)
[2021-02-20] MEDS: PANTOPRAZOLE 40MG TABLET PO SCH ×2 (05:24→16:01)
[2021-02-20 05:26] LABS: MEAN CORPUSCULAR HEMOGLOBIN 26.8 pg (27.5-34.5); MEAN CORPUSCULAR HGB CONC 32.5 g/dL (33.2-36.2); MEAN PLATELET VOLUME 7.9 fL (7.4-10.4); PLATELET COUNT 247 x10^3/uL (130-400); RED BLOOD COUNT 5.18 x10^6/uL (4.38-5.82)
[2021-02-20 05:38] LABS: CHLORIDE 95 mmol/L (98-107)
[2021-02-20 06:01] LABS: ALANINE AMINOTRANSFERASE 38 U/L (12-78); ALBUMIN 1.9 g/dL (3.4-5.0); ALKALINE PHOSPHATASE 121 U/L (45-117); ANION GAP 7 mmol/L (5-15); BILIRUBIN,TOTAL 0.9 mg/dL (0.2-1.0); CALCIUM 8.2 mg/dL (8.5-10.1); CREATININE 1.66 mg/dL (0.7-1.3); TOTAL PROTEIN 6.1 g/dL (6.4-8.2)
[2021-02-20 06:25] LABS: BAND#(MANUAL) 0.69 x10^3/uL; BANDS%(MANUAL) 3 % (0-7); LYMPH#(MANUAL) 0.69 x10^3/uL (1-3.4); LYMPHS% (MANUAL) 3 % (22-44)
[2021-02-20 06:26] LABS: ANISOCYTOSIS 1+; MONOS#(MANUAL) 1.15 x10^3/uL (0.3-2.7); MONOS% (MANUAL) 5 % (2-9); SEG#(MANUAL) 20.47 x10^3/uL (1.8-6.8); SEGS% (MANUAL) 89 % (42-75)
[2021-02-20 06:27] LABS: <PLATELET ESTIMATE> ADEQUATE; <PLT MORPHOLOGY> NORMAL PLT MORPH; HYPOCHROMIA 1+
[2021-02-20 08:02] VITALS: BP 129/66
[2021-02-20] MEDS ORDERED: methylPREDNISolone SOD SUCC 40 MG/ML IV SCH (09:00)
[2021-02-20] MEDS: FAMOTIDINE 20 MG TABLET PO SCH (09:09)
[2021-02-20] MEDS: CETIRIZINE 10 MG TABLET PO SCH (09:09)
[2021-02-20] MEDS: TRIAMCINOLONE CRM 0.1%, 454GMS TP SCH (09:10)
[2021-02-20] MEDS: FLUTICASONE/VILANTEROL 100-25MCG/INH INH SCH (09:11)
[2021-02-20] MEDS: HEPARIN 5,000 UNITS/ML, 1ML SQ SCH ×4 (09:11→23:37)
[2021-02-20] MEDS: SODIUM CHLORIDE 0.9% 1,000 ML IV SCH (09:12)
[2021-02-20] MEDS: DIPHENHYDRAMINE 50 MG/ML, 1ML IVPush PRN (09:12)
[2021-02-20] MEDS: ALBUMIN HUMAN 25% 100 ML IV SCH ×2 (10:53→16:00)
[2021-02-20 12:57] VITALS: BP 90/66
[2021-02-20] MEDS ORDERED: METRONIDAZOLE PMX 500MG/100ML 100 ML IV SCH (14:00)
[2021-02-20] MEDS ORDERED: FUROSEMIDE 40 MG/4 ML IV ONE (14:00)
[2021-02-20 15:59] VITALS: BP 97/61
[2021-02-20] MEDS: VANCOMYCIN 50 MG/ML ORAL SUSP PO SCH ×2 (16:21→21:00)
[2021-02-20] MEDS: methylPREDNISolone SOD SUCC 40 MG/ML IV SCH (21:00)
[2021-02-20 21:28] VITALS: BP 104/64
[2021-02-21] MEDS: ALPRazolam 1MG TAB PO PRN ×2 (00:02→21:02)
[2021-02-21] MEDS: MELATONIN 5 MG TABLET PO PRN (00:02)
[2021-02-21 02:01] VITALS: BP 104/63
[2021-02-21] MEDS: PIPERACILLIN/TAZO 3.375 GM in DEXTROSE 5% 50 ML IV SCH ×3 (02:29→14:46)
[2021-02-21] MEDS: VANCOMYCIN 50 MG/ML ORAL SUSP PO SCH ×4 (03:21→23:32)
[2021-02-21 06:01] LABS: BASOPHILS % (AUTO) 0 % (0-1); EOSINOPHILS % (AUTO) 0 % (1-7); LYMPHOCYTES % (AUTO) 2 % (22-44); MEAN PLATELET VOLUME 8.3 fL (7.4-10.4); MONOCYTES % (AUTO) 3 % (2-9); NEUTROPHILS % (AUTO) 96 % (42-75); PLATELET COUNT 170 x10^3/uL (130-400); RED BLOOD COUNT 3.93 x10^6/uL (4.38-5.82); RED CELL DISTRIBUTION WIDTH 16.2 % (9.4-14.8)
[2021-02-21 06:07] LABS: CHLORIDE 100 mmol/L (98-107)
[2021-02-21 06:23] LABS: ANION GAP 12 mmol/L (5-15); CALCIUM 8.1 mg/dL (8.5-10.1); CREATININE 1.97 mg/dL (0.7-1.3)
[2021-02-21] MEDS: PANTOPRAZOLE 40MG TABLET PO SCH ×2 (06:33→17:22)
[2021-02-21] MEDS: HEPARIN 5,000 UNITS/ML, 1ML SQ SCH ×3 (08:08→23:49)
[2021-02-21 08:34] VITALS: BP 111/68
[2021-02-21] MEDS: FLUTICASONE/VILANTEROL 100-25MCG/INH INH SCH (09:39)
[2021-02-21] MEDS: CETIRIZINE 10 MG TABLET PO SCH (09:39)
[2021-02-21] MEDS: methylPREDNISolone SOD SUCC 40 MG/ML IV SCH ×2 (09:39→21:03)
[2021-02-21] MEDS: DIPHENHYDRAMINE 50 MG/ML, 1ML IVPush PRN (11:36)
[2021-02-21 12:27] VITALS: BP 108/70
[2021-02-21] MEDS: OXYcodone IR 5MG TABLET PO PRN (12:38)
[2021-02-21 19:07] VITALS: BP 115/68
[2021-02-21] MEDS: ALBUTEROL HFA 90 MCG/SPRAY INH PRN (19:42)
[2021-02-21] MEDS: FAMOTIDINE 20 MG TABLET PO SCH (21:02)
[2021-02-21] MEDS: PIPERACILLIN/TAZO 2.25 GM in DEXTROSE 5% 50 ML IVPB SCH (21:17)
[2021-02-22] VITALS (10 sets, daily range): BP systolic 81–130; BP diastolic 40–76
[2021-02-22] MEDS: PIPERACILLIN/TAZO 2.25 GM in DEXTROSE 5% 50 ML IVPB SCH ×4 (02:58→23:28)
[2021-02-22] MEDS: DIPHENHYDRAMINE 50 MG/ML, 1ML IVPush PRN ×2 (03:12→20:17)
[2021-02-22] MEDS: VANCOMYCIN 50 MG/ML ORAL SUSP PO SCH ×4 (05:49→23:29)
[2021-02-22] MEDS ORDERED: MORPHINE SULFATE 4 MG/ML, 1ML IVPush ONE (07:00)
[2021-02-22] MEDS ORDERED: methylPREDNISolone SOD SUCC 125 MG/2 ML IVPush STA (07:13)
[2021-02-22] MEDS: ALBUTEROL HFA 90 MCG/SPRAY INH PRN ×2 (07:13→07:15)
[2021-02-22] MEDS ORDERED: FUROSEMIDE 40 MG/4 ML ONE ×2 (07:14→18:20)
[2021-02-22] MEDS ORDERED: methylPREDNISolone SOD SUCC 125 MG/2 ML ONE ×2 (07:14→18:20)
[2021-02-22] MEDS ORDERED: FUROSEMIDE 40 MG/4 ML IV ONE ×3 (07:30→18:30)
[2021-02-22] MEDS ORDERED: POTASSIUM CHLORIDE 20 MEQ in SODIUM CHLORIDE 0.9% 250 ML IV ONE (07:30)
[2021-02-22] MEDS: HEPARIN 5,000 UNITS/ML, 1ML SQ SCH ×3 (08:00→23:08)
[2021-02-22] MEDS: methylPREDNISolone SOD SUCC 40 MG/ML IV SCH ×2 (08:21→21:19)
[2021-02-22] MEDS ORDERED: ACETAMINOPHEN 500 MG TABLET ONE (08:23)
[2021-02-22] MEDS ORDERED: ACETAMINOPHEN 500 MG TABLET PO ONE (08:30)
[2021-02-22] MEDS: PANTOPRAZOLE 40MG TABLET PO SCH ×2 (08:31→17:03)
[2021-02-22] MEDS: CETIRIZINE 10 MG TABLET PO SCH (08:31)
[2021-02-22] MEDS: FLUTICASONE/VILANTEROL 100-25MCG/INH INH SCH (08:31)
[2021-02-22 09:28] LABS: MEAN CORPUSCULAR HEMOGLOBIN 27.3 pg (27.5-34.5); MEAN CORPUSCULAR HGB CONC 33.2 g/dL (33.2-36.2); PLATELET COUNT 160 x10^3/uL (130-400); RED BLOOD COUNT 3.98 x10^6/uL (4.38-5.82); RED CELL DISTRIBUTION WIDTH 16.3 % (9.4-14.8)
[2021-02-22 09:50] LABS: BAND#(MANUAL) 1.31 x10^3/uL; BANDS%(MANUAL) 19 % (0-7); LYMPH#(MANUAL) 0.07 x10^3/uL (1-3.4); LYMPHS% (MANUAL) 1 % (22-44); SEG#(MANUAL) 5.52 x10^3/uL (1.8-6.8); SEGS% (MANUAL) 80 % (42-75)
[2021-02-22 09:51] LABS: <PLATELET ESTIMATE> ADEQUATE; <PLT MORPHOLOGY> NORMAL PLT MORPH; ANISOCYTOSIS 1+
[2021-02-22] MEDS ORDERED: CHOLECALCIFEROL 5,000u TAB PO SCH (10:30)
[2021-02-22] MEDS ORDERED: CYANOCOBALAMIN 1,000 MCG/ML, 1ML IM ONE (10:30)
[2021-02-22] MEDS ORDERED: ZINC SULFATE 220 MG CAPSULE PO SCH (10:30)
[2021-02-22] MEDS: ASCORBIC ACID 500 MG TABLET PO SCH ×2 (11:06→17:03)
[2021-02-22] MEDS: MULTIVITS,STRESS FORMULA 1 TABLET PO SCH (11:06)
[2021-02-22] MEDS: METOPROLOL SUCCINATE 25 MG TAB.ER.24H PO SCH ×2 (11:06→21:19)
[2021-02-22] MEDS ORDERED: methylPREDNISolone SOD SUCC 125 MG/2 ML IVPush ONE (18:30)
[2021-02-22] MEDS: ALPRazolam 1MG TAB PO PRN (20:17)
[2021-02-22] MEDS: MELATONIN 5 MG TABLET PO PRN (21:19)
[2021-02-22] MEDS: ACETAMINOPHEN 325 MG TABLET PO PRN (21:19)
[2021-02-22] MEDS: FAMOTIDINE 20 MG TABLET PO SCH (21:19)
[2021-02-22] MEDS ORDERED: DILTIAZEM 5 MG/ML, 5ML IVPush ONE ×2 (21:30→22:00)
[2021-02-22] MEDS ORDERED: DILTIAZEM 5 MG/ML, 5ML ONE (21:43)
[2021-02-22 22:44] LABS: ANION GAP 13 mmol/L (5-15); CALCIUM 8.3 mg/dL (8.5-10.1); CHLORIDE 102 mmol/L (98-107); CREATININE 2.19 mg/dL (0.7-1.3)
[2021-02-22 23:12] LABS: FREE T4 (FREE THYROXINE) 1.06 ng/dL (0.76-1.46)
[2021-02-23 01:21] VITALS: BP 104/69
[2021-02-23] MEDS ORDERED: DILTIAZEM 5 MG/ML, 5ML IVPush PRN (03:30)
[2021-02-23] MEDS: AMIODARONE 450 MG in DEXTROSE 5% 241 ML IV PRN ×2 (03:57→11:06)
[2021-02-23] MEDS ORDERED: AMIODARONE 150 MG in DEXTROSE 5% 100 ML IV ONE ×2 (04:00→10:30)
[2021-02-23] MEDS ORDERED: FILTER 0.22 MICRON IV PRN (04:00)
[2021-02-23] MEDS ORDERED: LORazepam 2 MG/ML, 1ML IVPush PRN (04:00)
[2021-02-23 04:18] LABS: MEAN CORPUSCULAR HGB CONC 32.7 g/dL (33.2-36.2); MEAN PLATELET VOLUME 8.7 fL (7.4-10.4); PLATELET COUNT 159 x10^3/uL (130-400); RED BLOOD COUNT 3.95 x10^6/uL (4.38-5.82); RED CELL DISTRIBUTION WIDTH 16.7 % (9.4-14.8)
[2021-02-23 04:26] LABS: ANION GAP 12 mmol/L (5-15); CHLORIDE 103 mmol/L (98-107); CREATININE 2.53 mg/dL (0.7-1.3)
[2021-02-23 04:39] LABS: ALBUMIN 0.9 g/dL (3.4-5.0)
[2021-02-23 04:47] LABS: ANISOCYTOSIS 1+; BAND#(MANUAL) 1.04 x10^3/uL; BANDS%(MANUAL) 20 % (0-7); LYMPHS% (MANUAL) 2 % (22-44); MONOS#(MANUAL) 0.16 x10^3/uL (0.3-2.7); MONOS% (MANUAL) 3 % (2-9); SEGS% (MANUAL) 75 % (42-75)
[2021-02-23 04:48] LABS: <PLATELET ESTIMATE> ADEQUATE; <PLT MORPHOLOGY> NORMAL PLT MORPH
[2021-02-23] MEDS: PIPERACILLIN/TAZO 2.25 GM in DEXTROSE 5% 50 ML IVPB SCH ×2 (05:25→14:21)
[2021-02-23] MEDS ORDERED: SODIUM BICARB 8.4%, 50ML SYRINGE ONE (05:27)
[2021-02-23] MEDS ORDERED: EPINEPHRINE SYRINGE 0.1 MG/ML, 10ML ONE ×2 (05:27→17:00)
[2021-02-23] MEDS ORDERED: LORazepam 2 MG/ML, 1ML ONE (06:02)
[2021-02-23] MEDS: LORazepam 2 MG/ML, 1ML IVPush PRN ×2 (06:06→18:41)
[2021-02-23] MEDS: VANCOMYCIN 50 MG/ML ORAL SUSP PO SCH ×2 (08:00→15:12)
[2021-02-23] MEDS: FLUTICASONE/VILANTEROL 100-25MCG/INH INH SCH (09:00)
[2021-02-23] MEDS: METOPROLOL SUCCINATE 25 MG TAB.ER.24H PO SCH (09:00)
[2021-02-23] MEDS ORDERED: PROPOFOL 100 ML IV ONE ×2 (10:11→15:04)
[2021-02-23] MEDS ORDERED: NOREPINEPHRINE 8 MG in SODIUM CHLORIDE 0.9% 242 ML IV PRN (14:00)
[2021-02-23] MEDS: MULTIVITS,STRESS FORMULA 1 TABLET PO SCH (14:20)
[2021-02-23] MEDS: methylPREDNISolone SOD SUCC 40 MG/ML IV SCH (14:20)
[2021-02-23] MEDS: HEPARIN 5,000 UNITS/ML, 1ML SQ SCH (14:20)
[2021-02-23] MEDS ORDERED: SUCCINYLCHOLINE 20 MG/ML, 10ML ONE (15:04)
[2021-02-23] MEDS ORDERED: PROPOFOL 10 MG/ML, 100ML IV ONE (15:04)
[2021-02-23] MEDS ORDERED: ETOMIDATE 20 MG/10 ML ONE (15:04)
[2021-02-23] MEDS ORDERED: PROPOFOL 100 ML IV PRN (15:30)
[2021-02-23] MEDS ORDERED: SODIUM CHLORIDE 0.9%, 250ML ONE (17:00)
[2021-02-23] MEDS ORDERED: PANTOPRAZOLE 40 MG IV IVPush SCH (17:00)
[2021-02-23] MEDS ORDERED: EPINEPHRINE 1 MG/ML, 30ML ONE (17:00)
[2021-02-23] MEDS ORDERED: SODIUM BICARBONATE 4.2%, 5ML ONE (17:00)
[2021-02-23] MEDS ORDERED: AMIODARONE 50 MG/ML, 3ML ONE (17:00)
[2021-02-23] MEDS ORDERED: CODE BLUE RESPONSE XX ONE (17:00)
[2021-02-23] MEDS ORDERED: MAGNESIUM SULFATE 1 GM/2 ML ONE (17:00)
[2021-02-23] MEDS ORDERED: MORPHINE SULFATE 4 MG/ML, 1ML IV PRN (18:30)
[2021-02-23] MEDS ORDERED: MORPHINE SULFATE 4 MG/ML, 1ML ONE (18:31)
[2021-02-24] MEDS ORDERED: PANTOPRAZOLE 40MG TABLET PO SCH (06:00)
== END 2021-02-24 09:37 | DRG 602 ==
LOC: ED 19:08 → EDIP 21:44 → 3N 22:28 → 4EST 02-19 21:45 → 5SO 02-22 23:02 → ICU 02-23 04:59
PROVIDERS: ADMIT Internal Medicine; ATTEND Internal Medicine
PROC: 5A09357 Assistance with Respiratory Ventilation, Less than 24 Consecutive Hours, Continuous Positive Airway Pressure (ICD-10-PCS; 2021-02-22)
PROC: 5A1935Z Respiratory Ventilation, Less than 24 Consecutive Hours (ICD-10-PCS; principal; 2021-02-23)
PROC: 0BH17EZ Insertion of Endotracheal Airway into Trachea, Via Natural or Artificial Opening (ICD-10-PCS; 2021-02-23)
PROC: 02HV33Z Insertion of Infusion Device into Superior Vena Cava, Percutaneous Approach (ICD-10-PCS; 2021-02-23)
PROC: B548ZZA Ultrasonography of Superior Vena Cava, Guidance (ICD-10-PCS; 2021-02-23)
PROC: 04HK33Z Insertion of Infusion Device into Right Femoral Artery, Percutaneous Approach (ICD-10-PCS; 2021-02-23)
PROC: 5A12012 Performance of Cardiac Output, Single, Manual (ICD-10-PCS; 2021-02-23)
DX: L03.114 Cellulitis of left upper limb (principal); N17.0 Acute kidney failure with tubular necrosis; E43 Unspecified severe protein-calorie malnutrition; J18.9 Pneumonia, unspecified organism; J96.21 Acute and chronic respiratory failure with hypoxia; I50.43 Acute on chronic combined systolic (congestive) and diastolic (congestive) heart failure; L03.314 Cellulitis of groin; R78.81 Bacteremia; A04.72 Enterocolitis due to Clostridium difficile, not specified as recurrent; E87.1 Hypo-osmolality and hyponatremia; E87.2 Acidosis; F31.9 Bipolar disorder, unspecified; Z20.822 Contact with and (suspected) exposure to COVID-19; I25.10 Atherosclerotic heart disease of native coronary artery without angina pectoris; F41.9 Anxiety disorder, unspecified; J44.9 Chronic obstructive pulmonary disease, unspecified; K21.9 Gastro-esophageal reflux disease without esophagitis; L30.8 Other specified dermatitis; L20.9 Atopic dermatitis, unspecified; I25.5 Ischemic cardiomyopathy; I48.0 Paroxysmal atrial fibrillation; D72.10 Eosinophilia, unspecified; D63.8 Anemia in other chronic diseases classified elsewhere; I11.0 Hypertensive heart disease with heart failure; Z87.891 Personal history of nicotine dependence; Z98.61 Coronary angioplasty status; Z86.718 Personal history of other venous thrombosis and embolism; I25.2 Old myocardial infarction; Z68.27 Body mass index [BMI] 27.0-27.9, adult; Z87.11 Personal history of peptic ulcer disease; Z72.89 Other problems related to lifestyle; Z59.0 Homelessness; Z82.5 Family history of asthma and other chronic lower respiratory diseases; Z82.49 Family history of ischemic heart disease and other diseases of the circulatory system
CPT/HCPCS: 36415; 36573; 36600; 71045; 71275; 74018; 74178; 76700; 80048; 80053; 80069; 82728; 82803; 82962; 83605; 83615; 83690; 83735; 83880; 84100; 84145; 84439; 84443; 84481; 85025; 86140; 87040; 87070; 87147; 87181; 87205; 87324; 87493; 87635; 92950; 93005; 94002; 94003; 94640; 94660; 96365; 96375; 99291; G0378; J0690; J0696; J1644; J1940; J2405; J2543; J2704; J3370; J3475; J3480; J7060; P9047; Q9967; U0005; C1751; J0171; J0282; J0330; J0360; J1200; J2060; J2270; J2920; J2930; J3420; J7050; J7512; Q0163; Q0177; U0003